=== PATIENT | male | born 1935 | race Two or more races ===

== ENCOUNTER 2016-11-11 22:13 | Inpatient (IN) | payer MEDICARE, OTHER ==
[~2016-11-11] VITALS: Ht 170.2 cm; Wt 77.1 kg
[~2016-11-11 22:13] MED LIST: ACET-868 PO; BISA-79 RC; BLOO-140 IN; FERR-58 PO; FLUT1DIS3 IH; FURO-145 PO; INSU100V3 SQ; INSU100V7 SQ; MAGN400O6 PO; METO25TA6 PO; MULT1TAB11 PO; NA P133E RC; PANT40TA2 PO; TAMS-12 PO; TIOT18CA3 INH
--- NOTE | 2016-11-11 22:15 | NUR ---
PT BIB [facility] AND SOB SINCE 11AM. PER RA " PT ON SCENE SATURATION WAS AT 80'S THEN PLACED ON NON REBREATHER, 02 SAT INCREASED TO 96%. PT AO TO NAME. PT NOTED WITH SOB. HX OF COPD. NO NVD AT THIS TIME. PT GOWNED AND PLACED ON MONITOR. DR. NETTLES AT BEDSIDE FOR EVAL. PER RA PLACED IV ON LEFT WRIST 18.
--- NOTE | 2016-11-11 22:28 | NUR ---
IV STARTED ON LEFT AC 18. BLOOD AND BLOOD CX DRAWN. SENT TO LAB
--- NOTE | 2016-11-11 22:29 | NUR ---
RT AT BEDSIDE FOR ABG DRAW.
[2016-11-11 22:38] LABS: BASOPHILS % (AUTO) 0.6 % (0.0-2.0); EOSINOPHILS # (AUTO) 0.3 /CMM (0.0-0.7); EOSINOPHILS % (AUTO) 4.5 % (0.0-6.0); HEMATOCRIT 39 % (39-51); HEMOGLOBIN 12.1 g/dL (13.5-17.5); LYMPHOCYTES # (AUTO) 1.3 /CMM (0.8-4.8); LYMPHOCYTES % (AUTO) 17.6 % (20.0-44.0); MEAN CORPUSCULAR HEMOGLOBIN 27 PG (26.0-33.0); MEAN CORPUSCULAR HGB CONC 31 g/dl (31.0-36.0); MEAN CORPUSCULAR VOLUME 84 fL (80-96); MONOCYTES # (AUTO) 0.5 /CMM (0.1-1.30); MONOCYTES % (AUTO) 6.5 % (2.0-12.0); NEUTROPHILS # (AUTO) 5.2 /CMM (1.8-8.9); NEUTROPHILS % (AUTO) 70.8 % (43.0-81.0); PLATELET COUNT (AUTO) 243 /CMM (150-450); RDW COEFFICIENT OF VARIATION 16.2 (11.5-15.0); RED BLOOD CELL COUNT(AUTO) 4.58 MIL/uL (4.5-6.0); WHITE BLOOD COUNT (AUTO) 7.4 K/uL (4.3-11.0)
--- NOTE | 2016-11-11 22:41 | NUR ---
XRAY AT BEDSIDE
[2016-11-11 22:46] LABS: ABG BASE EXCESS 8.6 mmol/L; ABG OXYGEN SATURATION 81.6 % (92.0-98.5); ABG PCO2 68.8 mmHg (35.0-45.0); ABG PH 7.344 (7.350-7.450); ABG PO2 50.5 mmHg (75.0-100.0); ABG TOTAL HEMOGLOBIN 12.3 G/dL (13.5-18.0); AaDO2 16.8 mmHg; MetHb 0.5 % (0.0-1.5); O2Hb 80.4 % (94.0-97.0); SITE, ABG Left Radial; VENT MODE, BG ROOM AIR
--- NOTE | 2016-11-11 22:46 | NUR ---
DR. DAVIS AT BEDSIDE FOR EVAL.
[2016-11-11 22:50] LABS: CALCIUM, SERUM 9.2 mg/dL (8.5-10.1); CREATININE 0.9 mg/dL (0.6-1.3)
[2016-11-11 22:53] LABS: LACTIC ACID 1.9 mmol/L (0.4-2.0)
[2016-11-11 22:55] LABS: TROPONIN I 0.074 ng/mL (0.00-0.056)
[2016-11-11 23:00] LABS: ALBUMIN 2.9 g/dL (3.4-5.0); BILIRUBIN,DIRECT 0.1 mg/dL (0.0-0.2); BILIRUBIN,TOTAL 0.3 mg/dL (0.2-1.0); TOTAL PROTEIN, SERUM 7.1 g/dL (6.4-8.2)
--- NOTE | 2016-11-11 23:22 | NUR ---
DR. GALVAN SPEAKING TO DR. DAVIS REGARDING ADMISSION.
[2016-11-11] MEDS ORDERED: LEVOFLOXACIN 750 MG /D5W 150ML 150 ML IV ONE (23:23)
[2016-11-11] MEDS ORDERED: IV NS 0.9% 1,000 ML ONE (23:24)
[2016-11-11] MEDS ORDERED: IV SET PRIMARY PUMP SET 1 EA INFUS.SET MC ONE (23:24)
--- NOTE | 2016-11-11 23:28 | NUR ---
PATIENT ASSIGNED TO 312-2
[2016-11-11] MEDS ORDERED: MAG HYDROX/AL HYDROX/SIMETH 30 ML UDC PO PRN (23:30)
[2016-11-11] MEDS ORDERED: NA PHOS,M-B/NA PHOS,DI-BA 1 EA ENEMA RC PRN (23:30)
[2016-11-11] MEDS ORDERED: LEVOFLOXACIN 750 MG /D5W 150ML PIGGYBACK IV ONE (23:30)
[2016-11-11] MEDS ORDERED: FUROSEMIDE 40 MG/4 ML VIAL IV ONE (23:30)
[2016-11-11] MEDS ORDERED: ONDANSETRON HCL/PF 4 MG/2 ML VIAL IVP PRN (23:30)
[2016-11-11] MEDS ORDERED: ZOLPIDEM TARTRATE 5 MG TABLET PO PRN (23:30)
[2016-11-11] MEDS: LEVOFLOXACIN 750 MG /D5W 150ML 750 MG in PREMIX 1 EA IV SCH (23:30)
[2016-11-11] MEDS ORDERED: ACETAMINOPHEN 325 MG TABLET PO PRN ×2 (23:30)
[2016-11-11] MEDS ORDERED: IV NS 0.9% 1,000 ML BAG IV ONE (23:30)
[2016-11-11] MEDS ORDERED: Z GUARD REMEDY 2 OZ OINT TP PRN (23:30)
[2016-11-11] MEDS ORDERED: IPRATROPIUM NEB FS 0.5 MG/2.5 ML AMPUL.NEB NEB PRN (23:30)
[2016-11-11] MEDS ORDERED: ENOXAPARIN SODIUM 40 MG/0.4 ML DISP.SYRIN SQ SCH (23:30)
[2016-11-11] MEDS ORDERED: BISACODYL (5 MG) 5 MG TABLET.DR PO PRN (23:30)
[2016-11-11] MEDS ORDERED: MAGNESIUM HYDROXIDE 30 ML UDC PO PRN (23:30)
[2016-11-11] MEDS ORDERED: HYDROCODONE/APAP 5/325MG 1 EACH TABLET PO PRN (23:30)
[2016-11-11] MEDS ORDERED: ALBUTEROL FS 2.5 MG/0.5 ML VIAL.NEB NEB PRN (23:30)
[2016-11-11] MEDS ORDERED: ASPIRIN 81 MG TAB.CHEW PO ONE (23:30)
[2016-11-11] MEDS ORDERED: ASPIRIN 81 MG TAB.CHEW ONE (23:34)
--- NOTE | 2016-11-11 23:46 | NUR ---
REPORT GIVEN TO MARCOS TURK FOR CONTINUE OF CARE.
--- NOTE | 2016-11-11 23:47 | NUR ---
PT ASSIGNED TO TELE 312-2 PER BURKE
[2016-11-12] VITALS (32 sets, daily range): BP systolic 103–149; BP diastolic 54–96
--- NOTE | 2016-11-12 | NUR ---
yung alex notes: checked blood sugar and reveal 124, no insulin given pt on cardiac diet, tolerating po intake Addendum: 11/12/16 at 0144 by NANCY YOST RN wrong time: 0100
--- NOTE | 2016-11-12 00:02 | NUR ---
PT TRANSFERED PER ACLS PROTOCOL.
--- NOTE | 2016-11-12 00:05 | NUR ---
ADMISSION NOTES: RECEIVED REPORT FROM CARMEN RODRÍGUEZ. [facility], BROUGHT TO THE UNIT VIA GURNEY, PT IS A/O X1 TO SELF ONLY, [place] SPEAKING, ON 3L VIA NC, RESPIRATION EVEN AND UNLABORED, NO FACIAL GRIMACE NOTED, APPEARS CALM AND COMFORTABLE, PT HAS LEFT HAND G 18 AND LEFT AC G 18 BOTH PATENT AND FLUSHING WELL, RECEIVED PT WITH ONGOING IV NS 1L BOLUS AND LEVOFLOXACIN RUNNING AT 100ML/HR. ORIENTED PT TO UNIT POLICY AND HOURLY ROUNDING, TELEMONITOR IN PLACED, ON SINUS RHYTHM TO SINUS TACH WITH PAC HR 95, HIGHEST 120, VS TAKEN AND RECORDED. INVENTORY OF BELONGING COMPLETED BY NIKOLAS LIM. SAFETY PRECAUTIONS FOR FALL INITIATED CALL LIGHT IN REACH, WILL CONTINUE TO MONITOR
[2016-11-12] MEDS ORDERED: ENOXAPARIN SODIUM 40 MG/0.4 ML DISP.SYRIN SQ ONE (00:07)
[2016-11-12] MEDS ORDERED: FUROSEMIDE 40 MG/4 ML VIAL ONE (00:07)
--- NOTE | 2016-11-12 00:20 | NUR ---
SILK SCREEN PRINTER HELPER NOTES: SKIN ASSESSMENT PERFORMED, TAKEN PICTURES PRINTED AND ATTACHED TO CHART PLEASE SEE SKIN ASSESSMENT FOR DETAILS. WOUND CARE PROVIDED, BLE KEPT OFFLOADED. BED BATH PROVIDED TO THE PT AT THIS TIME. CONNECTED TO [employer] PULSE OX WITH READING OF 92-98% LOWEST 86% WHEN SLEEPING, ON 3L VIA NC, CRACKLES HEARD UPON AUSCULTATION.
--- NOTE | 2016-11-12 00:30 | NUR ---
television presenter notes: stop above pt's iv bolus, possible congestion pt has copd, will recheck vital sign again,
--- NOTE | 2016-11-12 00:39 | NUR ---
supervisor telephone answering service notes: iv levaquin not administered at this time, dose of levaquin given in er,
[2016-11-12] MEDS ORDERED: methylPREDNISolone SOD SUCC 40 MG/ML VIAL ONE ×2 (00:41→06:09)
--- NOTE | 2016-11-12 00:45 | NUR ---
ANIMAL RESEARCHER NOTES: CHECKED PT'S MEDICAL RECORD FROM FACILITY, ITS INDICATED THERE PT'S VACCINATION STATUS, PT RECEIVED FLU AND PNEUMOCOCCAL VACCINE HOWEVER IT'S NOT INDICATED THE SPECIFIC DATE PT RECEIVED THE VACCINE.
[2016-11-12] MEDS: methylPREDNISolone SOD SUCC 125 MG/2ML VIAL IV SCH ×5 (00:47→17:36)
--- NOTE | 2016-11-12 01:38 | NUR ---
telecom coordinator notes: recheck pt's vital signs and reval, 116/79 hr 98 rr 21 spo2 95% on 2l via nc, 98.0
[2016-11-12] MEDS ORDERED: ASPI81TA2 PO (02:18)
[2016-11-12] MEDS ORDERED: METF10002 PO (02:18)
--- NOTE | 2016-11-12 06:16 | NUR ---
television writer notes: checked pt's blood sugar and reveal 182, no insulin given, per md no accucheck no coverage for now, relay to external grinder tender meg, will endorse to day md to get coverage for insulin and accucheck order
--- NOTE | 2016-11-12 06:36 | NUR ---
telecasting technician closing notes: pt in bed, awake, remains a/o x1, confused, on 3l via nc, currently on continuous pulse ox sating 96%, no sob noted, not in apparent distress, no facial grimace noted, appears comfortable. remains sinus rhythm 99 also goes to tachy 110. iv access remains patent and flushing well, on hl. no s/s of infiltration or redness noted. vs remains stable, needs attended. ble kept offloaded. for wound care, pulmo, case mngt and csc consult today. will endorse to day rn for rupal.
[2016-11-12 06:58] LABS: BASOPHILS % (AUTO) 0.1 % (0.0-2.0); EOSINOPHILS % (AUTO) 0.5 % (0.0-6.0); HEMATOCRIT 41 % (39-51); HEMOGLOBIN 12.7 g/dL (13.5-17.5); LYMPHOCYTES # (AUTO) 0.4 /CMM (0.8-4.8); LYMPHOCYTES % (AUTO) 6.4 % (20.0-44.0); MEAN CORPUSCULAR HEMOGLOBIN 27 PG (26.0-33.0); MEAN CORPUSCULAR HGB CONC 31 g/dl (31.0-36.0); MEAN CORPUSCULAR VOLUME 85 fL (80-96); MONOCYTES % (AUTO) 0.7 % (2.0-12.0); NEUTROPHILS # (AUTO) 5.4 /CMM (1.8-8.9); NEUTROPHILS % (AUTO) 92.3 % (43.0-81.0); PLATELET COUNT (AUTO) 193 /CMM (150-450); RDW COEFFICIENT OF VARIATION 16.1 (11.5-15.0); RED BLOOD CELL COUNT(AUTO) 4.78 MIL/uL (4.5-6.0); WHITE BLOOD COUNT (AUTO) 5.9 K/uL (4.3-11.0)
[2016-11-12 07:29] LABS: CREATININE 0.8 mg/dL (0.6-1.3); MAGNESIUM 1.4 mg/dL (1.8-2.4); POTASSIUM 4.4 mmol/L (3.5-5.1)
[2016-11-12] MEDS: PANTOPRAZOLE 40 MG TABLET.DR PO SCH (07:30)
[2016-11-12] MEDS ORDERED: PANTOPRAZOLE 40 MG TABLET.DR PO SCH (07:30)
--- NOTE | 2016-11-12 07:30 | NUR ---
DELIVERY TABLE OPERATOR OPENING RECEIVED PATIENT A/OX1 VERBALIZES NAME ONLY. PATIENT DOES NOT EXPRESS S/S PAIN, SOB, DIFFICULTY BREATHING. PULSE OX IS ON; PATIENT CURRENTLY IS ON 3LPM AND VARIES O2 SAT FROM 92-95%. PATIENT APPEARS COMFORTABLE AND PILLOWS MOVED TO ASSIST WITH INCREASED COMFORT. WILL ORDER CONTINUOUS PULSE OX FOR PATIENT. CALL LIGHT IN REACH, BED LOWERED AND LOCKED, RAILS UPX3 FOR SAFETY AND WILL ROUND Q2H OR LESS PER NEEDS.
--- NOTE | 2016-11-12 07:30 | NUR ---
SUPERVISOR PILE DRIVING NOTES PATIENT CURRENTLY NSR HIGH 90'S
--- NOTE | 2016-11-12 07:40 | NUR ---
SPRAY PILOT NOTES NOTIFIED DR TURNER OF CONSULT.
[2016-11-12 07:44] LABS: THYROID STIMULATING HORMONE 1.16 uIU/mL (0.358-3.74)
--- NOTE | 2016-11-12 08:15 | NUR ---
TOOL CLERK NOTES PATIENT IS VERY LETHARGIC; BLOOD SUGAR WAS JUST CHECKED BY NIGHT RN AND NOT LOW. PATIENT OPENS EYES WHEN ASKED BUT NOT VERY RESPONSIVE. HAS MORE SHALLOW BREATHING AT THIS TIME RT WILL DO ABG.
--- NOTE | 2016-11-12 08:30 | NUR ---
BOTTOM SCRUBBER NOTES DR TURNER AT BEDSIDE
--- NOTE | 2016-11-12 08:34 | NUR ---
CLASSROOM AIDE NOTES CALLED RT TO HAVE ABG DRAWN AND TO BRING UP CONTINUOUS PULSE OX
[2016-11-12] MEDS: TAMSULOSIN 0.4 MG CAP.SR.24H PO SCH ×2 (09:00→17:36)
[2016-11-12] MEDS: GUAIFENESIN LA 600 MG TABLET.SA PO SCH ×3 (09:00→21:00)
[2016-11-12 09:11] LABS: ABG OXYGEN SATURATION 94.1 % (92.0-98.5); ABG PCO2 119.4 mmHg (35.0-45.0); ABG PH 7.184 (7.350-7.450); ABG PO2 86.1 mmHg (75.0-100.0); ABG TOTAL HEMOGLOBIN 13.1 G/dL (13.5-18.0); AaDO2 2.4 mmHg; COHb 1.2 % (0.5-1.5); MetHb 0.4 % (0.0-1.5); O2Hb 92.6 % (94.0-97.0); SITE, ABG Right Radial; VENT MODE, BG NASAL CANNULA
--- NOTE | 2016-11-12 09:20 | NUR ---
POLICEMAN NOTES SPOKE WITH DR HALIE AVILES TO GIVE SOLUMEDROL AT NEXT DOSE 1300
--- NOTE | 2016-11-12 09:30 | NUR ---
PRINCIPAL ACCOUNT CLERKSTAMPING DIE MAKER TRANSFERRING PATIENT TO ICU PER MD ORDER. DR AMBROSE AT BEDSIDE FOR TRANSPORT. PATIENT PLACED ON LEADS, AND O2 2LPM. RT AT BEDSIDE. REPORT GIVEN TO DANUTA RODRÍGUEZ FOR ROSA. SPOKE WITH TASIA VINSON AND UPDATED ON PATIENT CONDITION.
--- NOTE | 2016-11-12 09:30 | NUR ---
SEQUENCING MACHINE OPERATOR RECEIVED PT BY BED FROM [facility] FOR ABNORMAL ABG. PT LETHARGIC. PLACED ON BIPAP.
--- NOTE | 2016-11-12 10:00 | NUR ---
PT PLACED ON BIPAP SETTINGS 20/5 BACKUP RATE OF 20, FIO2 25%. PT TOLERATING WELL. STILL LETHARGIC BUT AROUSABLE. FOLLOW UP ABG'S ORDERED.
[2016-11-12 10:46] LABS: ABG BASE EXCESS 9.9 mmol/L; ABG OXYGEN SATURATION 90.5 % (92.0-98.5); ABG PH 7.288 (7.350-7.450); ABG PO2 65.3 mmHg (75.0-100.0); ABG TOTAL HEMOGLOBIN 12.7 G/dL (13.5-18.0); COHb 1.4 % (0.5-1.5); MetHb 0.6 % (0.0-1.5); O2Hb 88.7 % (94.0-97.0); PEEP,BG 5 cm H2O; SITE, ABG Right Radial; VENT MODE, BG BIPAP 20/5
[2016-11-12] MEDS ORDERED: IV SET PRIMARY PUMP SET 1 EA INFUS.SET MC ONE (11:59)
[2016-11-12] MEDS ORDERED: IV NS 0.9% 250 ML IV ONE (11:59)
[2016-11-12] MEDS ORDERED: SECONDARY IV SET 1 EA INFUS.SET MC ONE (11:59)
[2016-11-12] MEDS: Magnesium 1GM/D5W 100ML PREMIX 100 ML IV SCH ×4 (12:05→16:51)
--- NOTE | 2016-11-12 12:30 | NUR ---
PT WOKE UP AGITATED REMOVED BIPAP AND SITTING UP IN BED. TRIED PLACING HIM ON NC 2 LITERS, HIS SATURATION IS AT 88-95% BUT HIS MENTAL STATUS WENT FROM AWAKE AND AGITATED TO DROWSY AND LETHARGIC PLACED HIM BACK ON THE BIPAP, FOLLOW UP ABG'S ORDERED, LAST CO2 IS 85%
[2016-11-12] MEDS: ALBUTEROL FS 2.5 MG/0.5 ML VIAL.NEB NEB SCH ×2 (13:07→20:07)
[2016-11-12] MEDS: IPRATROPIUM NEB FS 0.5 MG/2.5 ML AMPUL.NEB NEB SCH ×2 (13:07→20:07)
--- NOTE | 2016-11-12 18:32 | NUR ---
PT AWAKE OFF BIPAP AND SATURATING AT 93% ON 2L NC. HE IS SOMEWHAT AGITATED AND HUNGRY. ABLE TO TOLERATE EATING INDEPENDENTLY WITHOUT DESATURATING. DR. AWAD AWARE ORDERS KEEP HIM ON NC FOR NOW AND BIPAP OVERNIGHT WITH ABG ORDER IN THE MORNING.
--- NOTE | 2016-11-12 20:00 | NUR ---
LANG PATH THERAPIST - NOTES - RECEIVED PATIENT A/OX1-2, PATIENT DENIES PAIN, SOB. PATIENT CURRENTLY IS ON 4 LPM VIA NC. PATIENT APPEARS COMFORTABLE AND PILLOWS MOVED TO ASSIST WITH INCREASED COMFORT. CALL LIGHT IN REACH, BED LOWERED AND LOCKED, RAILS UPX3 FOR SAFETY AND WILL ROUND Q1H OR LESS PER NEEDS.
[2016-11-12] MEDS: ENOXAPARIN SODIUM 40 MG/0.4 ML DISP.SYRIN SQ SCH (20:39)
[2016-11-12] MEDS: INSULIN DETEMIR 100 UNIT/ML CARTRIDGE SQ SCH (22:01)
--- NOTE | 2016-11-12 22:30 | NUR ---
PT SON AT BEDSIDE, SON SAYS THE PT IS CONFUSED AND IS SAYING THINGS THAT DONT MAKE SENSE LIKE I HAVE TO GO THROUGH IMMIGRATION BACK TO [place]. WILL PLACE PT ON BIPAP OVERNIGHT
--- NOTE | 2016-11-12 23:54 | NUR ---
PT PLACED ON BIPAP
[2016-11-12] MEDS: LEVOFLOXACIN 750 MG /D5W 150ML 750 MG in PREMIX 1 EA IV SCH (23:59)
[2016-11-13] VITALS (25 sets, daily range): BP systolic 106–159; BP diastolic 64–94
[2016-11-13] MEDS: IPRATROPIUM NEB FS 0.5 MG/2.5 ML AMPUL.NEB NEB SCH ×4 (02:03→19:30)
[2016-11-13] MEDS: ALBUTEROL FS 2.5 MG/0.5 ML VIAL.NEB NEB SCH ×4 (02:03→19:30)
[2016-11-13 04:46] LABS: BASOPHILS % (AUTO) 0.4 % (0.0-2.0); EOSINOPHILS % (AUTO) 0.1 % (0.0-6.0); HEMATOCRIT 40 % (39-51); HEMOGLOBIN 12.3 g/dL (13.5-17.5); LYMPHOCYTES # (AUTO) 0.5 /CMM (0.8-4.8); LYMPHOCYTES % (AUTO) 11.7 % (20.0-44.0); MEAN CORPUSCULAR HEMOGLOBIN 27 PG (26.0-33.0); MEAN CORPUSCULAR HGB CONC 31 g/dl (31.0-36.0); MEAN CORPUSCULAR VOLUME 85 fL (80-96); MONOCYTES # (AUTO) 0.5 /CMM (0.1-1.30); MONOCYTES % (AUTO) 10.8 % (2.0-12.0); NEUTROPHILS # (AUTO) 3.4 /CMM (1.8-8.9); PLATELET COUNT (AUTO) 190 /CMM (150-450); RDW COEFFICIENT OF VARIATION 15.6 (11.5-15.0); RED BLOOD CELL COUNT(AUTO) 4.66 MIL/uL (4.5-6.0); WHITE BLOOD COUNT (AUTO) 4.4 K/uL (4.3-11.0)
[2016-11-13 04:58] LABS: CALCIUM, SERUM 8.9 mg/dL (8.5-10.1); CREATININE 0.9 mg/dL (0.6-1.3); MAGNESIUM 2.4 mg/dL (1.8-2.4); POTASSIUM 4.9 mmol/L (3.5-5.1)
--- NOTE | 2016-11-13 07:05 | NUR ---
RN INITIAL NOTES RECEIVED PT AWAKE, A/OX1-2 WITH PERIODS OF CONFUSION. ON BIPAP. NO SOB NOTED. NO RESPIRATORY DISTRESS NOTED. NO SIGNS OF PAIN NOTED. HOB ELEVATED. IV LINES IN PLACE. BLE ELEVATED. PT COMFORTABLE. CALL LIGHT WITHIN REACH. WILL MONITOR.
--- NOTE | 2016-11-13 07:27 | NUR ---
RT PATIENT REMOVED FROM BIPAP AND PLACED ON 2L N/C. PATIENT RESPONDS TO VERBAL COMMANDS AND HAS NO COMPLAINTS OF SOB. WILL CONT TO MONITOR CLOSELY. RN AWARE
[2016-11-13] MEDS: methylPREDNISolone SOD SUCC 125 MG/2ML VIAL IV SCH ×3 (08:00→16:37)
[2016-11-13] MEDS: GUAIFENESIN LA 600 MG TABLET.SA PO SCH ×2 (08:00→21:33)
[2016-11-13] MEDS: TAMSULOSIN 0.4 MG CAP.SR.24H PO SCH ×2 (08:00→16:37)
[2016-11-13] MEDS: PANTOPRAZOLE 40 MG TABLET.DR PO SCH (08:00)
--- NOTE | 2016-11-13 08:28 | NUR ---
RT PATIENT AWAKE AND ALERT WAS ASKED MULTIPLE TIMES IF HE WOULD ALLOW ME TO DRAW AN ABG. PROCEDURE AND PURPOSE WAS EXPLAINED. PATIENT REFUSED EVERY TIME AND SAID IF YOU WANT TO BE HIT COME CLOSE TO ME WITH THAT NEEDLE. RN AWARE AND NOTIFIED
[2016-11-13] MEDS ORDERED: DEXTROSE 50%-WATER 50 ML DISP.SYRIN IV PRN (09:00)
--- NOTE | 2016-11-13 09:00 | NUR ---
RN NOTES SEEN AND EXAMINED BY DR. GARCES. PT OFF BIPAP, ON 02 AT 2LPM VIA NC. NO RESPIRATORY DISTRESS NOTED. NO SOB NOTED. HOB ELEVATED. NO SIGNS OF PAIN NOTED. MD AWARE OF CURRENT LAB VALUES AND CXR RESULT. NOTIFIED THAT PT REFUSED ABG DRAW EVEN AFTER EXPLANATION OF IMPORTANCE. NO ORDER MADE AT THIS TIME.
[2016-11-13] MEDS: INSULIN REGULAR, HUMAN 100 UNIT/ML 3 ML VIAL SQ PRN ×2 (12:08→16:48)
[2016-11-13] MEDS: BLOOD SUGAR DIAGNOSTIC 1 EACH STRIP IN SCH ×3 (12:08→21:33)
--- NOTE | 2016-11-13 13:51 | NUR ---
WOUND CARE CONSULT: VERY LIMITED ASSESSMENT DUE TO PATIENT AGITATED AND REFUSING SKIN ASSESSMENT AT THIS TIME. PT NOTED TO HAVE OPEN WOUND TO RT LOWER LEG. LOWER LEGS HAVE REDDISH/PURPLE COLOR. RECOMMENDATIONS MADE FOR WOUND CARE. DISCUSSED WITH NURSING STAFF. RECOMMEND SURGICAL CONSULT. PT SITTING UP IN BED AT THIS TIME WITH RN AT BEDSIDE. PT INCONTINENT. WILL SEE PT PT CONDITION PERMITS. MD IN AGREEMENT WITH PLAN OF CARE.
--- NOTE | 2016-11-13 13:55 | NUR ---
RN NOTES SEEN AND EXAMINED BY NIEVES (WOUND NURSE). PT AGITATED. REFUSED TO DO FULL BODY ASSESSMENT. NOTED WOUND ON RIGHT LOWER LEG. TX ORDERED. WILL KEEP CLEAN AND DRY. WILL MONITOR FOR CHANGES
[2016-11-13] MEDS ORDERED: HYDROGEL DRESSING 90 GM TUBE TP PRN (14:00)
--- NOTE | 2016-11-13 14:55 | NUR ---
RN NOTES IV LINE ON LAC PULLED OUT. COVERED WITH GAUZE. PT REFUSED IV INSERTION. PT AGITATED, YELLING. EXPLAINED IMPORTANCE WITH ACUTE CARE OCCUPATIONAL THERAPIST, STILL REFUSED. RESPECTED PT'S RIGHTS.
[2016-11-13] MEDS: HYDROGEL DRESSING 90 GM TUBE TP SCH (15:16)
--- NOTE | 2016-11-13 18:55 | NUR ---
RN NOTES PT TRANSFERRED TO ROOM 106. PT A/OX1-2 WITH PERIODS OF CONFUSION. ON 02 VIA NC. NO SOB NOTED. NO SIGNS OF PAIN NOTED. IN STABLE CONDITION. REPORT GIVEN TO CRISTOPHER RODRÍGUEZ. TOOK OVER PT'S CARE.
--- NOTE | 2016-11-13 19:30 | NUR ---
MAUREEN RN INITIAL NOTES RECEIVED REPORT FROM NURSE NICHOLAS. PATIENT IN BED, AWAKE, ALERT AND ORIENTED X1-2, MACEDONIAN SPEAKING, WITH PERIODS OF CONFUSION, OCCASIONAL PERIODS OF AGITATION/REFUSAL OF CARE. LEFT HAND IV SITE PATENT AND INTACT, FLUSHED WITH NS, FREE FROM ANY S/S OF INFILTRATION OR PHLEBITIS. ON O2 VIA NC @ 2LPM, TOLERATING WELL, FREE FROM ANY S/S OF RESPIRATORY DISTRESS. RT AT BEDSIDE, PATIENT REFUSING BREATHING TREATMENT. EXPLAINED RISKS AND CONSEQUENCES OF REFUSING PRESCRIBED MEDICATION. PATIENT VERBLIZES UNDERSTANDING BUT STILL STRONGLY REFUSES. BED IN LOWEST AND LOCKED POSITION, WITH CALL LIGHT WITHIN EASY REACH. WILL CONTINUE TO CLOSELY MONITOR
[2016-11-13] MEDS: *INSULIN REGULAR(HUMULIN R)HUM 100 UNIT/ML VIAL SQ PRN (21:36)
[2016-11-13] MEDS: INSULIN DETEMIR 100 UNIT/ML CARTRIDGE SQ SCH (21:39)
[2016-11-13] MEDS: ENOXAPARIN SODIUM 40 MG/0.4 ML DISP.SYRIN SQ SCH (21:39)
[2016-11-13] MEDS ORDERED: IV SET PRIMARY PUMP SET 1 EA INFUS.SET MC ONE (23:11)
[2016-11-13] MEDS: LEVOFLOXACIN 750 MG /D5W 150ML 750 MG in PREMIX 1 EA IV SCH (23:44)
[2016-11-14] VITALS: BP 124/80
[2016-11-14] MEDS: IPRATROPIUM NEB FS 0.5 MG/2.5 ML AMPUL.NEB NEB SCH ×4 (01:00→19:28)
[2016-11-14] MEDS: ALBUTEROL FS 2.5 MG/0.5 ML VIAL.NEB NEB SCH ×4 (01:00→19:28)
[2016-11-14 04:00] VITALS: BP 137/83
--- NOTE | 2016-11-14 06:07 | NUR ---
RN CLOSING NOTES PATIENT REFUSED LABS TO BE DRAWN THIS MORNING, STATING "TAKING MY BLOOD AFFECTS MY HEART." EXPLAINED TO THE PATIENT THE RISKS AND CONSEQUENCES OF REFUSING LABS. PATIENT VERBALIZES UNDERSTANDING, BUT STILL STRONGLY REFUSING, BECOMING AGITATED. PATIENT'S WISHES OBSERVED. WILL ENDORSE THE PATIENT TO THE AM SHIFT NURSE FOR ROSA
[2016-11-14 08:00] VITALS: BP 135/81
[2016-11-14] MEDS: GUAIFENESIN LA 600 MG TABLET.SA PO SCH ×2 (09:38→21:27)
[2016-11-14] MEDS: TAMSULOSIN 0.4 MG CAP.SR.24H PO SCH ×2 (09:38→16:51)
[2016-11-14] MEDS: PANTOPRAZOLE 40 MG TABLET.DR PO SCH (09:38)
[2016-11-14] MEDS: methylPREDNISolone SOD SUCC 125 MG/2ML VIAL IV SCH (09:39)
[2016-11-14] MEDS: HYDROGEL DRESSING 90 GM TUBE TP SCH (09:39)
[2016-11-14] MEDS: BLOOD SUGAR DIAGNOSTIC 1 EACH STRIP IN SCH ×4 (09:40→21:24)
[2016-11-14 09:41] LABS: ABG BASE EXCESS 11.7 mmol/L; ABG OXYGEN SATURATION 95.1 % (92.0-98.5); ABG PCO2 66.6 mmHg (35.0-45.0); ABG PH 7.389 (7.350-7.450); ABG PO2 83.8 mmHg (75.0-100.0); ABG TOTAL HEMOGLOBIN 12.7 G/dL (13.5-18.0); AaDO2 66.4 mmHg; COHb 0.9 % (0.5-1.5); MetHb 0.8 % (0.0-1.5); O2Hb 93.5 % (94.0-97.0); SITE, ABG Right Radial; VENT MODE, BG NASAL CANNULA
[2016-11-14] MEDS: INSULIN REGULAR, HUMAN 100 UNIT/ML 3 ML VIAL SQ PRN ×3 (09:48→17:46)
--- NOTE | 2016-11-14 10:04 | NUR ---
WOUND CARE CONSULT: PT BECOMES AGITATED AT TIMES. RT LOWER LEG AND RT ANTERIOR ANKLE ULCERS NOTED TO BE PRESENT ON ADMISSION. RESOLVING EDEMA WITH PURPLISH DISCOLORATION NOTED TO LOWER LEGS. RECOMMEND DPM CONSULT. RECOMMENDATIONS MADE FOR WOUND CARE AND DISCUSSED WITH NURSING STAFF. PT ON ISOFLEX LOW AIRLOSS BED. ALL SKIN PROTECTION MEASURES IN PLACE. MD IN AGREEMENT WITH PLAN OF CARE. Addendum: 11/14/16 at 1009 by NIEVES CARTAGENA WNDNU Amended: Links added.
[2016-11-14 10:47] LABS: CALCIUM, SERUM 8.8 mg/dL (8.5-10.1); CREATININE 0.9 mg/dL (0.6-1.3); POTASSIUM 4.7 mmol/L (3.5-5.1)
[2016-11-14 12:00] VITALS: BP 128/77
--- NOTE | 2016-11-14 13:37 | NUR ---
RN NOTES SPOKE WITH DR GOLDSTEIN, PER MD AVILES FOR PODIATRY CONSULT.
[2016-11-14] MEDS: predniSONE 20 MG TABLET PO SCH (14:39)
[2016-11-14 16:00] VITALS: BP 130/74
--- NOTE | 2016-11-14 18:23 | NUR ---
RN CLOSING NOTES PATIENT COOPERATIVE THROUGHOUT THE DAY. UNABLE TO OBTAIN IV ACCESS AFTER MULTIPLE ATTEMPTS Md notified and authorize that is is ok for no iv access at this time. PATIENT VERBALIZES UNDERSTANDING. pt WITH OUT ISSUE , NURSING STAFF WILL CONTINUE TO FOLLOW . WILL ENDORSE THE PATIENT TO THE pM SHIFT NURSE FOR ROSA
[2016-11-14 20:00] VITALS: BP 124/73
[2016-11-14] MEDS ORDERED: LEVOFLOXACIN (750 MG) 750 MG TABLET PO SCH (21:00)
[2016-11-14] MEDS: ENOXAPARIN SODIUM 40 MG/0.4 ML DISP.SYRIN SQ SCH (21:26)
[2016-11-14] MEDS: *INSULIN REGULAR(HUMULIN R)HUM 100 UNIT/ML VIAL SQ PRN (21:26)
[2016-11-14] MEDS: INSULIN DETEMIR 100 UNIT/ML CARTRIDGE SQ SCH (21:31)
--- NOTE | 2016-11-14 21:31 | NUR ---
MED NOTE: 2200 LEVEMIR HELD PT BLOOD SUGARS TRENDING DOWN. PT IS OFF IV STEROIDS WILL CONTINUE TO MONITOR.
--- NOTE | 2016-11-14 21:32 | NUR ---
MS-1/CHOCOLATE FINISHER CA KAREL DOZIER [phone] AT BEDSIDE. UPDATE GIVEN ON PT STATUS. PT DEBORA WOULD LIKE TO SPEAK WITH PRIMARY MD IN AM. WILL ENDORSE TO AM SHIFT.
[2016-11-15] MEDS: IPRATROPIUM NEB FS 0.5 MG/2.5 ML AMPUL.NEB NEB SCH ×3 (01:51→13:14)
[2016-11-15] MEDS: ALBUTEROL FS 2.5 MG/0.5 ML VIAL.NEB NEB SCH ×3 (01:51→13:15)
[2016-11-15 04:00] VITALS: BP 131/82
--- NOTE | 2016-11-15 06:09 | NUR ---
MS-1/GUN CLUB MANAGER PT REQUESTING PRN BREATHING TREATMENT. PT WHEEZING AND TRIPODING ON BEDSIDE TABLE. SPOKE WITH DR. ELLIS NEW ORDERS RECEIVED AND CARRIED OUT.
[2016-11-15] MEDS ORDERED: IPRATROPIUM NEB FS 0.5 MG/2.5 ML AMPUL.NEB NEB PRN (06:30)
[2016-11-15] MEDS ORDERED: ALBUTEROL FS 2.5 MG/0.5 ML VIAL.NEB NEB PRN (06:30)
[2016-11-15] MEDS: BLOOD SUGAR DIAGNOSTIC 1 EACH STRIP IN SCH ×2 (06:44→12:09)
[2016-11-15] MEDS: INSULIN REGULAR, HUMAN 100 UNIT/ML 3 ML VIAL SQ PRN ×2 (06:46→12:13)
--- NOTE | 2016-11-15 07:18 | NUR ---
RN INITIAL NOTES: Rec'd bed on bed on sitting position, A/O x 2, not in any distress. Pt on O2 at 2lpm/NC, saturating at 96%. No IV line noted. Provided comfort & safety measures. Call light placed w/in reach. Bed kept low & in locked position. Instructed pt to call RN or CLINICAL ACCOUNT LIAISON if needs assistance, verbalized understanding. Will continue to monitor.
[2016-11-15 08:00] VITALS: BP 128/70
[2016-11-15] MEDS: PANTOPRAZOLE 40 MG TABLET.DR PO SCH (08:22)
[2016-11-15] MEDS: predniSONE 20 MG TABLET PO SCH (08:22)
[2016-11-15] MEDS: TAMSULOSIN 0.4 MG CAP.SR.24H PO SCH (08:22)
[2016-11-15] MEDS: GUAIFENESIN LA 600 MG TABLET.SA PO SCH (08:22)
[2016-11-15] MEDS: HYDROGEL DRESSING 90 GM TUBE TP SCH (08:23)
[2016-11-15] MEDS ORDERED: LEVO750T21 PO (14:45)
[2016-11-15] MEDS ORDERED: PRED20TA PO (14:45)
--- NOTE | 2016-11-15 15:00 | NUR ---
RN NOTES: Pt seen & examined by Dr. Lucas w/ DC orders. spoke w/ pt's son Ramiro regarding DC.
[2016-11-15 16:00] VITALS: BP 114/75
--- NOTE | 2016-11-15 17:00 | NUR ---
RN NOTES: Gave telephone report to MARCOS Chery at [facility]. Pt's son Ramiro made aware of the picket labor union time by ambulance.
--- NOTE | 2016-11-15 17:30 | NUR ---
VALIDATION INTERN NOTES: [facility]. DC instructions & documents given to [facility] EMT c/o CN. Pt left the facility in stable condition via gurney, on cont O2 at 2lpm/NC, saturating at 95%.
[2016-11-16] MEDS ORDERED: predniSONE 20 MG TABLET PO SCH (09:00)
== END 2016-11-15 17:45 | DRG 189 ==
LOC: ER 22:14 → TELE 23:32 → ICU 11-12 09:15 → TELE-TD 11-13 18:44 → TELE1 11-14 09:43 → MEDSG1 11-14 13:55
PROC: 5A09357 Assistance with Respiratory Ventilation, Less than 24 Consecutive Hours, Continuous Positive Airway Pressure (ICD-10-PCS; principal; 2016-11-12)
DX: J96.01 Acute respiratory failure with hypoxia (principal); I21.4 Non-ST elevation (NSTEMI) myocardial infarction; G93.41 Metabolic encephalopathy; J44.1 Chronic obstructive pulmonary disease with (acute) exacerbation; J44.0 Chronic obstructive pulmonary disease with (acute) lower respiratory infection; E87.4 Mixed disorder of acid-base balance; I50.30 Unspecified diastolic (congestive) heart failure; J96.02 Acute respiratory failure with hypercapnia; K21.9 Gastro-esophageal reflux disease without esophagitis; N40.0 Benign prostatic hyperplasia without lower urinary tract symptoms; I11.0 Hypertensive heart disease with heart failure; I25.2 Old myocardial infarction; E11.65 Type 2 diabetes mellitus with hyperglycemia; R13.10 Dysphagia, unspecified; Z79.84 Long term (current) use of oral hypoglycemic drugs
CPT/HCPCS: 36415; 36600; 71010-TC; 80048-TC; 80061-TC; 80076-TC; 82803-TC; 82962-TC; 83605-TC; 83735-TC; 83880; 84100-TC; 84443-TC; 84484-TC; 85025-TC; 87040-TC; 87081-TC; 94799-TC; 97001-TC; 97116-TC; 97530-TC; A4216; A4606; A6248; J1650; J1815; J1940; J1956; J2920; J2930; J3475; J7030; J7050; Z7610

== ENCOUNTER 2017-02-06 21:09 | Inpatient (IN) | payer MEDICARE, OTHER ==
[~2017-02-06] VITALS: Ht 170.2 cm; Wt 86.0 kg
[~2017-02-06 21:09] MED LIST changes: +ASPI81TA2 PO; +LEVO750T21 PO; +METF10002 PO; +PRED20TA PO
[2017-02-06 21:15] VITALS: BP 147/92
[2017-02-06] MEDS ORDERED: methylPREDNISolone SOD SUCC 125 MG/2ML VIAL ONE (21:15)
--- NOTE | 2017-02-06 21:20 | NUR ---
MEDICATED PT ORDERED
--- NOTE | 2017-02-06 21:20 | NUR ---
PT DELLA FROM [facility], PT PER EMS WAS HAVING SOB X 20 MINUTES PRIOR TO ARRIVAL, PT IS NON VERBAL AT THIS TIME, IV PLACED PRIOR TO ARRIVAL BY EMS, RT AT [facility], SECOND IV PLACED UPON ARRIVAL AND LABS DRAWN AND SENT TO LAB, DWYER PLACED PER MD ORDER AND URINE SENT TO LAB, PT ON MONITOR, ON BIPAP, MD MADE AWARE WILL CONTINUE TO MONITOR.
[2017-02-06] MEDS ORDERED: IPRATROPIUM NEB FS 0.5 MG/2.5 ML AMPUL.NEB ONE ×2 (21:25→22:55)
[2017-02-06] MEDS ORDERED: ALBUTEROL FS 2.5 MG/0.5 ML VIAL.NEB ONE (21:25)
--- NOTE | 2017-02-06 21:26 | NUR ---
DWYER CATH PLACED ORDERED; URINE OUPTPUT 80 ML
[2017-02-06] MEDS ORDERED: methylPREDNISolone SOD SUCC 125 MG/2ML VIAL IV ONE (21:30)
[2017-02-06] MEDS ORDERED: IPRATROPIUM NEB FS 0.5 MG/2.5 ML AMPUL.NEB NEB ONE ×2 (21:30→22:30)
[2017-02-06] MEDS ORDERED: ALBUTEROL FS 2.5 MG/0.5 ML VIAL.NEB NEB ONE (21:30)
[2017-02-06 21:35] LABS: BASOPHILS % (AUTO) 0.4 % (0.0-2.0); EOSINOPHILS % (AUTO) 0.2 % (0.0-6.0); HEMATOCRIT 39 % (39-51); HEMOGLOBIN 12.5 g/dL (13.5-17.5); LYMPHOCYTES % (AUTO) 10.1 % (20.0-44.0); MEAN CORPUSCULAR HEMOGLOBIN 27 PG (26.0-33.0); MEAN CORPUSCULAR HGB CONC 32 g/dl (31.0-36.0); MEAN CORPUSCULAR VOLUME 85 fL (80-96); MONOCYTES # (AUTO) 1.2 /CMM (0.1-1.30); MONOCYTES % (AUTO) 11.4 % (2.0-12.0); NEUTROPHILS % (AUTO) 77.9 % (43.0-81.0); PLATELET COUNT (AUTO) 224 /CMM (150-450); RDW COEFFICIENT OF VARIATION 17.4 (11.5-15.0); WHITE BLOOD COUNT (AUTO) 10.2 K/uL (4.3-11.0)
[2017-02-06 21:45] LABS: APPEARANCE,URINE SLIGHTLY CLOUDY (CLEAR); COLOR,URINE YELLOW (YELLOW)
[2017-02-06 21:46] LABS: PH,URINE 5.5 (5.0-8.0); PROTEIN,URINE 3+ mg/dl (NEGATIVE); UGLUCOSE NEGATIVE (NEGATIVE)
[2017-02-06 21:47] LABS: BILIRUBIN,URINE 1+ (NEGATIVE); BLOOD, URINE 2+ Ery/uL (NEGATIVE); KETONES,URINE TRACE (NEGATIVE); LEUKOCYTE ESTERASE ,URINE NEGATIVE (NEGATIVE); NITRITE, URINE NEGATIVE (NEGATIVE); UROBILINOGEN,URINE 0.2 EU/dL (0.2)
[2017-02-06 21:49] LABS: INR 0.93 (0.87-1.13); PROTHROMBIN TIME 9.7 SECS (9.5-12.7)
[2017-02-06 21:53] LABS: ALANINE AMINOTRANSFERASE 31 U/L (12-78); ALBUMIN 3.2 g/dL (3.4-5.0); ALKALINE PHOSPHATASE 118 U/L (46-116); ASPARTATE AMINOTRANSFERASE 44 U/L (15-37); BILIRUBIN,DIRECT 0.1 mg/dL (0.0-0.2); BILIRUBIN,TOTAL 0.4 mg/dL (0.2-1.0); CALCIUM, SERUM 9.9 mg/dL (8.5-10.1); CARBON DIOXIDE 36 mmol/L (21-32); CHLORIDE 101 mmol/L (98-107); CREATININE 1.1 mg/dL (0.6-1.3); GLUCOSE 109 mg/dL (74-106); POTASSIUM 4.9 mmol/L (3.5-5.1); SODIUM SERUM 141 mmol/L (136-145); TOTAL PROTEIN, SERUM 7.3 g/dL (6.4-8.2); UREA NITROGEN, BLOOD 57 mg/dL (7-18)
[2017-02-06 21:53] LABS: BACTERIA,URINE None seen /HPF (None Seen); SQUAMOUS EPITHELIAL CELL,UR Few /HPF (None Seen)
[2017-02-06 21:54] LABS: URINE AMORPHOUS URATE Few /HPF (None Seen)
[2017-02-06 21:58] LABS: TROPONIN I 1.019 ng/mL (0.00-0.056)
[2017-02-06] MEDS ORDERED: ASPIRIN 300 MG/SUPP.RECT RC ONE ×2 (22:00→22:24)
[2017-02-06] MEDS ORDERED: LEVOFLOXACIN 750 MG /D5W 150ML 750 MG in PREMIX 1 EA IV SCH (22:00)
[2017-02-06] MEDS ORDERED: PROPOFOL 100 ML IV ONE ×2 (22:04→22:30)
--- NOTE | 2017-02-06 22:15 | NUR ---
PT INTUBATRED PER MD BLAZE ORDER, PT INTUBATED WITH A 8 SLOVENIAN AT 24 AT THE LIP, PT STARTED ON PROPOFOL RIGHT AFTER INTUBATION PER MD BLAZE ORDER. VSS WILL CONTINUE TO MONITOR.
[2017-02-06 22:20] VITALS: BP 104/66
--- NOTE | 2017-02-06 22:20 | NUR ---
CALLED MICHELLE FOR STAT READ ON CHEST X-RAY
[2017-02-06] MEDS ORDERED: LEVOFLOXACIN 750 MG /D5W 150ML 150 ML IV ONE (22:23)
[2017-02-06] MEDS ORDERED: ALBUTEROL FS 2.5 MG/3 ML VIAL.NEB CONTNEB ONE (22:30)
[2017-02-06] MEDS ORDERED: FENTANYL PF 100MCG/2ML AMPUL IV ONE (22:30)
[2017-02-06] MEDS ORDERED: ETOMIDATE 2 MG/ML VIAL IV ONE (22:30)
[2017-02-06] MEDS ORDERED: IV NS 0.9% 500 ML BAG IV ONE (22:30)
[2017-02-06] MEDS ORDERED: Magnesium 1 GM/2 ML VIAL IV ONE (22:30)
[2017-02-06] MEDS ORDERED: ROCURONIUM BROMIDE 100 MG/10 ML VIAL IV ONE (22:30)
[2017-02-06] MEDS ORDERED: ALBUTEROL FS 2.5 MG/3 ML VIAL.NEB ONE (22:55)
[2017-02-06] MEDS ORDERED: Magnesium 1GM/D5W 100ML PREMIX 200 ML IV ONE (22:56)
[2017-02-06] MEDS ORDERED: FENTANYL PF 100MCG/2ML AMPUL ONE (22:57)
[2017-02-06] MEDS ORDERED: IV NS 0.9% 1,000 ML BAG IV ONE (23:00)
--- NOTE | 2017-02-06 23:00 | NUR ---
PT IN BED VSS, PT SEDATED, MD MADE AWARE WILL CONTINUE TO MONITOR.
[2017-02-06 23:01] VITALS: BP 147/90
[2017-02-06 23:07] LABS: ABG BASE EXCESS 8.1 mmol/L; ABG OXYGEN SATURATION 73.3 % (92.0-98.5); ABG PCO2 59.3 mmHg (35.0-45.0); ABG PH 7.386 (7.350-7.450); ABG PO2 39.4 mmHg (75.0-100.0); COHb 1.2 % (0.5-1.5); MetHb 0.6 % (0.0-1.5); PEEP,BG 5 cm H2O; VENT MODE, BG VENOUS AC 14 500 40% +5; VT, ABG 500 mL
--- NOTE | 2017-02-06 23:10 | NUR ---
CALLED NURSING HOUSE NURSE FOR ICU BED
--- NOTE | 2017-02-06 23:16 | NUR ---
ICU 264
--- NOTE | 2017-02-06 23:23 | NUR ---
PT IN BED ON MONITOR, VSS, PT FAMILY AT BEDSIDE, WILL CONTINUE TO MONITOR.
--- NOTE | 2017-02-06 23:27 | NUR ---
IS PT KAREL DOZIER
--- NOTE | 2017-02-06 23:50 | NUR ---
PAGED DR CONTE CATCHER HELPER FOR [facility] FOR PANEL ADMISSION
[2017-02-07] VITALS (43 sets, daily range): BP systolic 88–140; BP diastolic 50–89
--- NOTE | 2017-02-07 00:14 | NUR ---
PT IN BED IN NO APPARENT DISTRESS, PT ON MONITOR, VSS WILL, MD MADE AWARE WILL CONTINUE TO MONITOR.
--- NOTE | 2017-02-07 00:22 | NUR ---
REPAGED DR CONTE FOR PANEL ADMISSION
[2017-02-07] MEDS ORDERED: Z GUARD REMEDY 2 OZ OINT TP PRN (01:30)
[2017-02-07] MEDS ORDERED: BISACODYL (5 MG) 5 MG TABLET.DR PO PRN (01:30)
[2017-02-07] MEDS ORDERED: ONDANSETRON HCL/PF 4 MG/2 ML VIAL IVP PRN (01:30)
[2017-02-07] MEDS ORDERED: ACETAMINOPHEN 325 MG TABLET PO PRN ×2 (01:30)
[2017-02-07] MEDS ORDERED: IV NS 0.9% 1,000 ML BAG IV ONE ×2 (01:30)
[2017-02-07] MEDS ORDERED: NA PHOS,M-B/NA PHOS,DI-BA 1 EA ENEMA RC PRN (01:30)
[2017-02-07] MEDS ORDERED: HYDROCODONE/APAP 5/325MG 1 EACH TABLET PO PRN (01:30)
[2017-02-07] MEDS ORDERED: MAGNESIUM HYDROXIDE 30 ML UDC PO PRN ×2 (01:30)
[2017-02-07] MEDS ORDERED: INSULIN REGULAR, HUMAN 100 UNIT/ML 3 ML VIAL SQ PRN (01:30)
[2017-02-07] MEDS ORDERED: ZOLPIDEM TARTRATE 5 MG TABLET PO PRN (01:30)
[2017-02-07] MEDS ORDERED: MAG HYDROX/AL HYDROX/SIMETH 30 ML UDC PO PRN (01:30)
[2017-02-07] MEDS ORDERED: PANTOPRAZOLE 40 MG VIAL IV SCH (01:30)
--- NOTE | 2017-02-07 01:30 | NUR ---
GRADUATE SCHOOL DEAN NOTES RECEIVED PT ON CY FROM ER. DX OF ACUTE RESPIRATORY DISTRESS. TELE READS SR AT 96 BPM. [facility] AT ORDERED SETTING, LEMUEL WELL. LEFT HAND 18G AND RIGHT WRIST 16G PIV, RUNNING DIPRIVAN AT 10 MCG/KG/MIN. MULTIPLE SKIN TEARS AT BILATERAL LOWER LEGS, PICTURES TAKEN, . NO S/S OF PAIN, SIDE RAILS X3, HOB ELEVATED, TURNED AND REPOSITIONED. WAITING FOR ADMISSION ORDERS.
[2017-02-07] MEDS ORDERED: PANTOPRAZOLE 40 MG VIAL ONE (01:53)
[2017-02-07] MEDS ORDERED: IV NS 0.9% 1,000 ML IV ONE (02:00)
[2017-02-07] MEDS ORDERED: PROPOFOL 100 ML IV PRN (02:00)
[2017-02-07] MEDS ORDERED: AZITHROMYCIN 500 MG VIAL ONE (02:08)
[2017-02-07] MEDS: AZITHROMYCIN 500 MG in IV D5W 250 ML IV SCH (02:14)
[2017-02-07] MEDS ORDERED: DEXTROSE 50%-WATER 50 ML DISP.SYRIN IV PRN ×2 (02:30→08:30)
[2017-02-07] MEDS ORDERED: ALBUTEROL FS 2.5 MG/3 ML VIAL.NEB ONE ×2 (03:08→07:55)
[2017-02-07] MEDS ORDERED: IPRATROPIUM NEB FS 0.5 MG/2.5 ML AMPUL.NEB ONE ×2 (03:09→07:55)
[2017-02-07] MEDS: IPRATROPIUM NEB FS 0.5 MG/2.5 ML AMPUL.NEB NEB SCH ×6 (03:12→23:25)
[2017-02-07] MEDS: ALBUTEROL FS 2.5 MG/3 ML VIAL.NEB NEB SCH ×6 (03:13→23:25)
[2017-02-07] MEDS ORDERED: BLOOD SUGAR DIAGNOSTIC 1 EACH STRIP IN SCH (06:00)
[2017-02-07] MEDS ORDERED: PROPOFOL 100 ML IV ONE (06:11)
[2017-02-07] MEDS: PROPOFOL 100 ML IV PRN ×4 (06:15→22:16)
[2017-02-07] MEDS ORDERED: Medication Not On Formulary EA (Blood Sugar Diagnostic, Drum (Accu-Chek Compact) 1 EACH) IN SCH (07:30)
[2017-02-07] MEDS ORDERED: INSULIN REGULAR, HUMAN 100 UNIT/ML 3 ML VIAL SQ SCH (07:30)
[2017-02-07] MEDS: methylPREDNISolone SOD SUCC 125 MG/2ML VIAL IV SCH (08:34)
[2017-02-07] MEDS: FERROUS SULFATE (325 MG) 325 MG/TAB TABLET PO SCH (08:34)
[2017-02-07] MEDS: METOPROLOL TARTRATE 25 MG TABLET PO SCH ×2 (08:34→17:16)
[2017-02-07] MEDS: MULTIVITAMINS,THERAGRAN 1 UDTAB TABLET PO SCH (08:35)
[2017-02-07] MEDS: ASPIRIN 81 MG TAB.CHEW PO SCH (08:35)
[2017-02-07] MEDS: METFORMIN 500 MG TABLET PO SCH ×2 (08:35→17:16)
[2017-02-07] MEDS: TAMSULOSIN 0.4 MG CAP.SR.24H PO SCH ×2 (08:35→17:16)
[2017-02-07] MEDS ORDERED: TIOTROPIUM BROMIDE 6 CAP/BOX CAP.W.DEV IH SCH (09:00)
[2017-02-07] MEDS ORDERED: ENOXAPARIN SODIUM 80 MG/0.8 ML DISP.SYRIN SQ SCH (09:00)
[2017-02-07] MEDS: FLUTICASONE/VILANTEROL 1 EACH BLST.W.DEV IH SCH (09:00)
[2017-02-07] MEDS ORDERED: FUROSEMIDE 20 MG TABLET PO SCH (09:00)
[2017-02-07] MEDS: CLOPIDOGREL BISULFATE 75 MG TABLET NG SCH (09:09)
--- NOTE | 2017-02-07 09:16 | NUR ---
ENERGY ECONOMIST NOTE 0720: Received patient sedated. With ETT to vent, tolerated settings well. No respiratory distress noted at this time. With PIVs intact, on Diprivan @ 30mcg. IVF infusing as ordered. Patel cath intact. Inserted NGT on left nares, patient tolerated, noted with gurgling sound on the gastric region during auscultation when introduced air. Patel cath intact, noted with minimal amount of clear yellow urine drained to BSD. SR 70's on the monitor. 0820: Rendered sedation vacation, patient able to follow commands but noted with trying to pull out invasive tubings, placed back on Propofol. 0830: S/E by Dr. Amin for cardio consult, obtained order for Lovenox and Plavix. aware for the ST depression. 0840: S/E by wound nurse, obtained new order for skin treatment.
--- NOTE | 2017-02-07 10:03 | NUR ---
WOUND CARE CONSULT PATIENT SEEN AND SKIN INTEGRITY ASSESSMENT DONE. SEE SALES SUPPORT MANAGER ASSESSMENT IN PCS FOR TODAY ALONG WITH ALL RECOMMENDATIONS. RECOMMEND PODIATRY FOR LOWER EXTREMITY ULCERATIONS POA. PATIENT WITH CURRENT MICHAEL AT 10, 1ST STEP LOW AIRLOSS MATTRESS ORDERED AND TO BE PLACE WHEN AVAILABLE IN THE UNIT FOR SKIN MANAGEMENT FOR LOW MICHAEL. CONTINUE TURNING Q 2 HOURS PATIENT CONDITION PERMITS, AND CONTINUE BILATERAL HEEL FLOATING. CONTINUE USE OF Z GUARD CURRENTLY ORDERED FOR SKIN/MOISTURE MANAGMENT. ALL DISCUSSED WITH NURSING AT THE BEDSIDE. Addendum: 02/07/17 at 1006 by SUDHIR FELTON WNDNU Amended: Links added.
[2017-02-07 10:36] LABS: ABG BASE EXCESS 2.9 mmol/L; ABG OXYGEN SATURATION 96.9 % (92.0-98.5); ABG PCO2 57.7 mmHg (35.0-45.0); ABG PH 7.331 (7.350-7.450); ABG PO2 101.7 mmHg (75.0-100.0); AaDO2 117.1 mmHg; COHb 0.2 % (0.5-1.5); MetHb 0.6 % (0.0-1.5); O2Hb 96.1 % (94.0-97.0); PEEP,BG 5 cm H2O; SITE, ABG Right Radial; VT, ABG 500 mL
--- NOTE | 2017-02-07 10:56 | NUR ---
CHEMISTRY INSTRUCTOR NOT^E S/E by Dr. Denson, family at bedside, discussed re: the POC. MD aware for the ABG, will continue same settings at this time, and will check again CXR and ABG in am. also ordered to decrease IVF @ 75 TFO and will start on GT feeding.
[2017-02-07] MEDS ORDERED: GLYTROL 1,000 ML BAG GT PRN (11:00)
[2017-02-07] MEDS ORDERED: IV NS 0.9% 1,000 ML BAG IV PRN (11:00)
[2017-02-07] MEDS: BLOOD SUGAR DIAGNOSTIC 1 EACH STRIP IN SCH ×3 (12:05→23:58)
[2017-02-07] MEDS: NEOMY SULF/BACITRAC ZN/POLY 15 GM TUBE TP SCH (12:05)
[2017-02-07] MEDS: INSULIN REGULAR, HUMAN 100 UNIT/ML 3 ML VIAL SQ PRN ×2 (12:06→17:17)
[2017-02-07] MEDS: IV NS 0.9% 1,000 ML IV PRN (13:26)
[2017-02-07] MEDS ORDERED: ROCURONIUM BROMIDE 50 MG/5 ML IV ONE (15:35)
[2017-02-07] MEDS ORDERED: FEE EMEERGENCY 1 MIN EA MC ONE (15:35)
[2017-02-07] MEDS ORDERED: ETOMIDATE 2 MG/ML VIAL IV ONE (15:35)
[2017-02-07] MEDS: GLYTROL 1,000 ML BAG GT PRN (15:52)
--- NOTE | 2017-02-07 17:30 | NUR ---
CONSULTING SOLUTION MANAGER NOTES RECEIVED PATIENT SEDATED , RESPONSIVE TO PAIN STIMULI , NOT IN ACUTE DISTRESS , RESPIRATION EVEN AND UNLABORED WITH SPO2 OF 100% VIA MECHANICAL VENTILATOR SETTINGS ORDERED . ETT 8.0 / [address] , SR 85 ON BEDSIDE MONITOR , L NARE NGT PATENT AND INTACT PLACEMENT VERIFIED VIA AUSCULTATION NOTED WITH GURGLING SOUNDS , NGT FEEDING OF GLYTROL @ 40ML/HR INFUSING WELL , IV @ HAND @ 18 PATENT AND INTACT WITH NS @ 75ML/HR AND DIPRIVAN @ 35MCG/MIN , , R WRIST @ 16 PATENT AND INTACT NOTED WITH BLEEDING , ALL NEEDS ATTENDED , BED ON LOW AND LOCKED POSITION , SIDE RAILS X3 , HOB @ 45 , WILL CONTINUE TO MONITOR
--- NOTE | 2017-02-07 19:15 | NUR ---
Received patient sedated on Diprivan drip at 35 mcg/kg/min to heplock left hand and site intact. Currently intubated to vent on AC mode.Vent settings well tolerated.SPO2 98%-99%.No respiratory distress noted.SR per monitor.VS stable.Hemodynamically stable.NGT feeding Glytrol infusing at 60 ml/hr with HOB elevated.Residual 10 ml.NGT placement verified by aspiration and auscultation.Abdomen soft with active bowel sounds.FC to gravity drainage with clear yellow urine.Continue to monitor.
--- NOTE | 2017-02-07 19:45 | NUR ---
Left upper arm MIDLINE inserted with good blood returned by Ghassan,RN PICC LINE TEAM.
[2017-02-07] MEDS ORDERED: INSULIN DETEMIR 100 UNIT/ML CARTRIDGE SQ SCH (22:00)
[2017-02-07] MEDS: ATORVASTATIN 10 MG TABLET NG SCH (22:14)
[2017-02-08] VITALS (35 sets, daily range): BP systolic 91–113; BP diastolic 51–70
[2017-02-08] MEDS: AZITHROMYCIN 500 MG in IV D5W 250 ML IV SCH (01:31)
[2017-02-08] MEDS: IV NS 0.9% 1,000 ML IV PRN ×2 (02:28→16:34)
[2017-02-08] MEDS: ALBUTEROL FS 2.5 MG/3 ML VIAL.NEB NEB SCH ×6 (03:37→23:36)
[2017-02-08] MEDS: IPRATROPIUM NEB FS 0.5 MG/2.5 ML AMPUL.NEB NEB SCH ×6 (03:37→23:36)
[2017-02-08] MEDS: PROPOFOL 100 ML IV PRN ×4 (04:36→22:08)
[2017-02-08 04:46] LABS: HEMATOCRIT 34 % (39-51); HEMOGLOBIN 11.1 g/dL (13.5-17.5); LYMPHOCYTES # (AUTO) 0.3 /CMM (0.8-4.8); LYMPHOCYTES % (AUTO) 3.1 % (20.0-44.0); MEAN CORPUSCULAR HEMOGLOBIN 28 PG (26.0-33.0); MEAN CORPUSCULAR HGB CONC 32 g/dl (31.0-36.0); MEAN CORPUSCULAR VOLUME 86 fL (80-96); MONOCYTES # (AUTO) 0.7 /CMM (0.1-1.30); MONOCYTES % (AUTO) 7.9 % (2.0-12.0); NEUTROPHILS # (AUTO) 7.9 /CMM (1.8-8.9); PLATELET COUNT (AUTO) 154 /CMM (150-450); RDW COEFFICIENT OF VARIATION 18.8 (11.5-15.0); RED BLOOD CELL COUNT(AUTO) 4.01 MIL/uL (4.5-6.0); WHITE BLOOD COUNT (AUTO) 8.9 K/uL (4.3-11.0)
[2017-02-08 05:01] LABS: CHOLESTEROL 198 mg/dL (<200); HDL CHOLESTEROL 91 mg/dL (40-60); LDL 87 mg/dL (0-99); TRIGLYCERIDES 106 mg/dL (30-150)
[2017-02-08 05:03] LABS: GLUCOSE 342 mg/dL (74-106); PHOSPHORUS 2.8 mg/dL (2.5-4.9); UREA NITROGEN, BLOOD 42 mg/dL (7-18)
[2017-02-08 05:07] LABS: CARBON DIOXIDE 33 mmol/L (21-32); CHLORIDE 102 mmol/L (98-107); POTASSIUM 3.8 mmol/L (3.5-5.1); SODIUM SERUM 141 mmol/L (136-145)
[2017-02-08] MEDS: BLOOD SUGAR DIAGNOSTIC 1 EACH STRIP IN SCH ×4 (06:38→21:00)
[2017-02-08] MEDS: INSULIN REGULAR, HUMAN 100 UNIT/ML 3 ML VIAL SQ PRN ×5 (06:41→21:03)
--- NOTE | 2017-02-08 06:50 | NUR ---
Patient remains sedated on DIPRIVAN drip at 30 mcg.SR.VS stable.Hemodynamically stable. NGT feeding now at 75 ml/hr well tolerated.No acute distress noted.Bathed and wound dressing changed.Turned and repositioned.
[2017-02-08] MEDS: METFORMIN 500 MG TABLET PO SCH ×2 (08:25→16:35)
[2017-02-08] MEDS: MULTIVITAMINS,THERAGRAN 1 UDTAB TABLET PO SCH (08:25)
[2017-02-08] MEDS: ASPIRIN 81 MG TAB.CHEW PO SCH (08:26)
[2017-02-08] MEDS: CLOPIDOGREL BISULFATE 75 MG TABLET NG SCH (08:26)
[2017-02-08] MEDS: TAMSULOSIN 0.4 MG CAP.SR.24H PO SCH ×2 (08:26→16:35)
[2017-02-08] MEDS: METOPROLOL TARTRATE 25 MG TABLET PO SCH ×2 (08:26→16:35)
[2017-02-08] MEDS: methylPREDNISolone SOD SUCC 125 MG/2ML VIAL IV SCH (08:26)
[2017-02-08] MEDS: FERROUS SULFATE (325 MG) 325 MG/TAB TABLET PO SCH (08:26)
[2017-02-08] MEDS: PANTOPRAZOLE 40 MG VIAL IV SCH (08:26)
[2017-02-08] MEDS: FLUTICASONE/VILANTEROL 1 EACH BLST.W.DEV IH SCH (08:26)
[2017-02-08] MEDS: NEOMY SULF/BACITRAC ZN/POLY 15 GM TUBE TP SCH (08:27)
[2017-02-08 09:10] LABS: ABG BASE EXCESS 6.4 mmol/L; ABG OXYGEN SATURATION 95.4 % (92.0-98.5); ABG PCO2 58.7 mmHg (35.0-45.0); ABG PH 7.371 (7.350-7.450); ABG PO2 86.3 mmHg (75.0-100.0); AaDO2 58.6 mmHg; MetHb 0.5 % (0.0-1.5); O2Hb 94.9 % (94.0-97.0); PEEP,BG 5 cm H2O; SITE, ABG Right Radial; VT, ABG 500 mL
--- NOTE | 2017-02-08 09:50 | NUR ---
ENVIRONMENTAL PLANNING ENGINEER NOTE 0720: Received patient sedated. With ETT to vent, tolerated settings well. No respiratory distress noted at this time. Noted with moderate amount of thick forrester secretions when suctioned orally and via ETT. With left NGT intact, feeding tolerated well, no residuals. Kept HOB elevated. With IRENE midline intact, on Diprivan @ 30, and NS @ 75. With Patel cath intact, noted with minimal gerardo colored urine with sediments. 0920: Rendered sedation vacation, able to follow commands, rendered reality orientation. But noted with trying to reach and remove ETT, placed back on Propofol @ 35. Will continue to monitor.
[2017-02-08] MEDS: GLYTROL 1,000 ML BAG GT PRN (09:55)
[2017-02-08] MEDS ORDERED: INSULIN DETEMIR 100 UNIT/ML CARTRIDGE SQ ONE (11:30)
[2017-02-08] MEDS ORDERED: DEXTROSE 50%-WATER 50 ML DISP.SYRIN IV PRN (11:30)
--- NOTE | 2017-02-08 20:00 | NUR ---
Patient remain sedated on Diprivan drip at 35 mcg.Intubated to vent on same settings well tolerated . Spo2 98%.Suctioned small amount white secretions.Oral care done.NGT feeding infusing at 75 ml/hr. Residual 5ml.HOB elevated.No distress noted.IVF infusing to IRENE MIDLINE site intact.Turned and repositioned.SR no ectopies noted.VS stable.Hemodynamically stable.FC with minimal yellow output.
--- NOTE | 2017-02-08 20:30 | NUR ---
Patient son twin son visiting.Updated of patient status and plan of care.Son able to talk to in the unit.
[2017-02-08] MEDS: INSULIN DETEMIR 100 UNIT/ML CARTRIDGE SQ SCH (21:02)
[2017-02-08] MEDS: ATORVASTATIN 10 MG TABLET NG SCH (21:24)
[2017-02-09] VITALS (30 sets, daily range): BP systolic 96–149; BP diastolic 60–79
[2017-02-09] MEDS: BLOOD SUGAR DIAGNOSTIC 1 EACH STRIP IN SCH ×5 (01:00→21:38)
[2017-02-09] MEDS: AZITHROMYCIN 500 MG in IV D5W 250 ML IV SCH (01:01)
[2017-02-09] MEDS: INSULIN REGULAR, HUMAN 100 UNIT/ML 3 ML VIAL SQ PRN ×3 (01:02→09:06)
[2017-02-09] MEDS: PROPOFOL 100 ML IV PRN ×2 (02:04→07:19)
[2017-02-09] MEDS: GLYTROL 1,000 ML BAG GT PRN (02:05)
[2017-02-09] MEDS: IPRATROPIUM NEB FS 0.5 MG/2.5 ML AMPUL.NEB NEB SCH ×6 (03:50→23:39)
[2017-02-09] MEDS: ALBUTEROL FS 2.5 MG/3 ML VIAL.NEB NEB SCH ×6 (03:50→23:39)
[2017-02-09 04:43] LABS: EOSINOPHILS % (AUTO) 0.1 % (0.0-6.0); HEMATOCRIT 30 % (39-51); HEMOGLOBIN 9.5 g/dL (13.5-17.5); LYMPHOCYTES # (AUTO) 0.5 /CMM (0.8-4.8); LYMPHOCYTES % (AUTO) 5.6 % (20.0-44.0); MEAN CORPUSCULAR HEMOGLOBIN 28 PG (26.0-33.0); MEAN CORPUSCULAR HGB CONC 32 g/dl (31.0-36.0); MEAN CORPUSCULAR VOLUME 86 fL (80-96); MONOCYTES # (AUTO) 0.5 /CMM (0.1-1.30); MONOCYTES % (AUTO) 5.8 % (2.0-12.0); NEUTROPHILS # (AUTO) 7.9 /CMM (1.8-8.9); NEUTROPHILS % (AUTO) 88.5 % (43.0-81.0); PLATELET COUNT (AUTO) 138 /CMM (150-450); RDW COEFFICIENT OF VARIATION 18.8 (11.5-15.0); RED BLOOD CELL COUNT(AUTO) 3.43 MIL/uL (4.5-6.0); WHITE BLOOD COUNT (AUTO) 8.9 K/uL (4.3-11.0)
[2017-02-09 05:22] LABS: CALCIUM, SERUM 6.4 mg/dL (8.5-10.1); CARBON DIOXIDE 27 mmol/L (21-32); CHLORIDE 109 mmol/L (98-107); CREATININE 0.6 mg/dL (0.6-1.3); GLUCOSE 205 mg/dL (74-106); MAGNESIUM 1.8 mg/dL (1.8-2.4); PHOSPHORUS 1.9 mg/dL (2.5-4.9); POTASSIUM 4.7 mmol/L (3.5-5.1); SODIUM SERUM 142 mmol/L (136-145); UREA NITROGEN, BLOOD 37 mg/dL (7-18)
[2017-02-09] MEDS: IV NS 0.9% 1,000 ML IV PRN ×2 (06:30→23:25)
--- NOTE | 2017-02-09 06:53 | NUR ---
Please disregard critical value of Magnesium 1.2.Wrong entry.Belongs to another patient.
--- NOTE | 2017-02-09 07:14 | NUR ---
Patient remains sedated on Diprivan drip at 35 mcg.VS stable.No significant change noted all throughout the shift.Tube feeding well tolerated.No distress noted.Bathed and wound dressing changed.Turned and repositioned.
[2017-02-09] MEDS: METFORMIN 500 MG TABLET PO SCH ×2 (08:12→17:03)
[2017-02-09] MEDS: PANTOPRAZOLE 40 MG VIAL IV SCH (08:12)
[2017-02-09] MEDS: methylPREDNISolone SOD SUCC 125 MG/2ML VIAL IV SCH (08:12)
[2017-02-09] MEDS: FERROUS SULFATE (325 MG) 325 MG/TAB TABLET PO SCH (08:12)
[2017-02-09] MEDS: MULTIVITAMINS,THERAGRAN 1 UDTAB TABLET PO SCH (08:13)
[2017-02-09] MEDS: CLOPIDOGREL BISULFATE 75 MG TABLET NG SCH (08:13)
[2017-02-09] MEDS: NEOMY SULF/BACITRAC ZN/POLY 15 GM TUBE TP SCH (08:13)
[2017-02-09] MEDS: ASPIRIN 81 MG TAB.CHEW PO SCH (08:13)
[2017-02-09] MEDS: TAMSULOSIN 0.4 MG CAP.SR.24H PO SCH ×2 (08:13→17:03)
[2017-02-09] MEDS: FLUTICASONE/VILANTEROL 1 EACH BLST.W.DEV IH SCH (08:13)
[2017-02-09] MEDS: METOPROLOL TARTRATE 25 MG TABLET PO SCH ×2 (08:14→17:03)
[2017-02-09 11:22] LABS: ABG BASE EXCESS 1.7 mmol/L; ABG OXYGEN SATURATION 96.3 % (92.0-98.5); ABG PCO2 54.3 mmHg (35.0-45.0); ABG PH 7.337 (7.350-7.450); AaDO2 59.1 mmHg; COHb 0.3 % (0.5-1.5); MetHb 0.3 % (0.0-1.5); O2Hb 95.7 % (94.0-97.0); SITE, ABG Right Brachial; VENT MODE, BG CPAP 5/ PS 10
--- NOTE | 2017-02-09 11:45 | NUR ---
PT EXTUBATED POST ABG AND CPAP TRAIL. WITH MD AT BEDSIDE. ZERO DISTRESS NOTED AT THIS TIME. PT ON 2LPM N/C
--- NOTE | 2017-02-09 11:52 | NUR ---
VOCATIONAL TRAINING INSTRUCTOR NOTE 1020: S/E by Dr. Agee, with order to place patient on Cpap trial. Turned off Diprivan. 1035: Patient fully awake, aware for the POC. RT placed patient on CPAP. 1130: ABG done, Dr. Agee in the unit aware, with order to extubate. 1140: Extubated patient, tolerated, able to cough, no stridor noted. Placed patient to chair as requested. RT given breathing treatment for increased WOB, RR 19, Sat 96% on room air. Now 100 while on breathing treatment, patient verbalized breathing better on chair and on breathing treatment ongoing.
[2017-02-09] MEDS ORDERED: DEXTROSE 50%-WATER 50 ML DISP.SYRIN IV PRN (13:00)
[2017-02-09] MEDS ORDERED: *INSULIN REGULAR(HUMULIN R)HUM 100 UNIT/ML VIAL SQ PRN (13:00)
[2017-02-09] MEDS ORDERED: NEUTRA PHOS 1 POWD.PACKET NG ONE (13:00)
[2017-02-09] MEDS ORDERED: INSULIN REGULAR, HUMAN 100 UNIT/ML 3 ML VIAL SQ PRN (13:00)
--- NOTE | 2017-02-09 16:40 | NUR ---
GARAGE LABORER NOTE Patient A/Ox3, offered to rest on the bed, patient prefers to sit on the chair. On room air, 95% O2 sat.
--- NOTE | 2017-02-09 19:40 | NUR ---
ASSISTANT CONTROLLER INITIAL NOTE RECEIVED REPORT FROM ENEDINA RODRÍGUEZ. PT UP IN CHAIR AT BEDSIDE. PT IS A/A/O X3 WITH A LOW VOICE WHEN SPEAKING. PT SPEAKS TAJIK. LUNG SOUNDS CRACKLES. NO O2 USE AT THIS TIME PER PT REQUEST. BOWEL SOUNDS PRESENT, USES BEDSIDE COMMODE WITH ASSISTANCE. CALL LIGHT WITH IN REACH. IV PATENT AND INTACT. WILL CONTINUE TO MONITOR.
[2017-02-09] MEDS: MUPIROCIN OINT 2% 22 GM TUBE SCH (21:37)
[2017-02-09] MEDS: INSULIN DETEMIR 100 UNIT/ML CARTRIDGE SQ SCH (21:38)
[2017-02-09] MEDS: ATORVASTATIN 10 MG TABLET NG SCH (21:38)
[2017-02-09] MEDS: AZITHROMYCIN 250 MG TABLET GT SCH (23:25)
[2017-02-10] VITALS (27 sets, daily range): BP systolic 111–149; BP diastolic 36–88
[2017-02-10] MEDS: IPRATROPIUM NEB FS 0.5 MG/2.5 ML AMPUL.NEB NEB SCH ×6 (03:33→22:44)
[2017-02-10] MEDS: ALBUTEROL FS 2.5 MG/3 ML VIAL.NEB NEB SCH ×6 (03:33→22:44)
--- NOTE | 2017-02-10 06:10 | NUR ---
WINE CELLAR WORKER LAB CALLED WITH CRITICAL VALUE. GLUCOSE 46. DID A BEDSIDE FINGER STICK TO VERIFY, BS 41. GAVE OJ AND THEN PUSHED D50.
[2017-02-10 06:17] LABS: CALCIUM, SERUM 9.1 mg/dL (8.5-10.1); CARBON DIOXIDE 35 mmol/L (21-32); CHLORIDE 105 mmol/L (98-107); CREATININE 0.6 mg/dL (0.6-1.3); POTASSIUM 4.5 mmol/L (3.5-5.1); SODIUM SERUM 143 mmol/L (136-145); UREA NITROGEN, BLOOD 30 mg/dL (7-18)
[2017-02-10 06:20] LABS: GLUCOSE 46 mg/dL (74-106)
[2017-02-10] MEDS: BLOOD SUGAR DIAGNOSTIC 1 EACH STRIP IN SCH ×5 (07:30→20:59)
--- NOTE | 2017-02-10 07:44 | NUR ---
RN OTES RECEIVED PT AWAKE OUT OF BED , IN CHAIR WITH NAD. REMAINS ON O2 INH , DENIES PAIN AND SOB. SINUS RHYTHM ON THE MONITOR. ABLE TO MSKE NEEDS KNOWN. CALL LGIHT WITHIN REACH. SAFETY AND COMFORT ENSURED. REMAINS ON ISOLATION WITH NECESSARY PRECAUTION OBSERVED. WILL MONITOR .
[2017-02-10] MEDS: FERROUS SULFATE (325 MG) 325 MG/TAB TABLET PO SCH (08:34)
[2017-02-10] MEDS: CLOPIDOGREL BISULFATE 75 MG TABLET NG SCH (08:34)
[2017-02-10] MEDS: FLUTICASONE/VILANTEROL 1 EACH BLST.W.DEV IH SCH (08:35)
[2017-02-10] MEDS: ASPIRIN 81 MG TAB.CHEW PO SCH (08:35)
[2017-02-10] MEDS: PANTOPRAZOLE 40 MG VIAL IV SCH (08:47)
[2017-02-10] MEDS: methylPREDNISolone SOD SUCC 125 MG/2ML VIAL IV SCH (08:47)
[2017-02-10] MEDS: METOPROLOL TARTRATE 25 MG TABLET PO SCH ×2 (08:48→16:32)
[2017-02-10] MEDS: METFORMIN 500 MG TABLET PO SCH ×2 (08:48→16:32)
[2017-02-10] MEDS: TAMSULOSIN 0.4 MG CAP.SR.24H PO SCH ×2 (08:48→16:32)
[2017-02-10] MEDS: MUPIROCIN OINT 2% 22 GM TUBE SCH ×2 (08:50→21:00)
[2017-02-10] MEDS: NEOMY SULF/BACITRAC ZN/POLY 15 GM TUBE TP SCH (08:50)
[2017-02-10] MEDS: MULTIVITAMINS,THERAGRAN 1 UDTAB TABLET PO SCH (09:18)
[2017-02-10] MEDS ORDERED: NEUTRA PHOS 1 POWD.PACKET NG ONE (12:00)
[2017-02-10] MEDS ORDERED: LORAZEPAM INJ 2 MG/ML VIAL IV PRN (12:30)
[2017-02-10] MEDS ORDERED: DEXTROSE 50%-WATER 50 ML DISP.SYRIN IV PRN (12:30)
[2017-02-10] MEDS ORDERED: Sodium Phosphate 7.5 MMOL in IV D5W 100 ML IV ONE (13:00)
[2017-02-10] MEDS: INSULIN REGULAR, HUMAN 100 UNIT/ML 3 ML VIAL SQ PRN ×2 (13:32→16:36)
[2017-02-10] MEDS: QUETIAPINE FUMARATE 25 MG TABLET PO SCH (17:28)
--- NOTE | 2017-02-10 18:40 | NUR ---
rn closing notes pt awake on the chair with NAD. remains on o2 inh via nc. all meds given during this shift. no significant changes noted during this shift. denies pain or any discomfort. will endorse to next shift for continuity of care in stable condition.
--- NOTE | 2017-02-10 19:30 | NUR ---
TANK TRUCK OPERATOR INITIAL NOTE RECEIVED REPORT FROM BRETT RN. PT IN UP IN CHAIR. A/A/OX3 WITH SON AT BEDSIDE. LUNG SOUNDS DIMINISHED. BOWEL SOUNDS PRESENT. INCONTINENT TO BOTH URINE AND STOOL. RECEIVED PT WITH STOOL IN DIAPER. PT WAS CLEANED AND SPONGE BATH WAS PROVIDED. PT REFUSES TO RETURN TO BED. HE IS TRIPODING POSITION. ON 2L NC TOLERATING WELL. GENERALIZED EDEMA NOTED. CALL LIGHT WITHIN REACH WILL CONTINUE TO MONITOR.
[2017-02-10] MEDS: ATORVASTATIN 10 MG TABLET NG SCH (21:00)
--- NOTE | 2017-02-10 22:30 | NUR ---
BETTING AGENCY MANAGER PT IS MORE CONFUSED THAN USUAL. PUT PT BACK IN BED, SINCE HE HAS BEEN UP IN DIFFERENT CHAIRS FOR OVER 24HRS. PT WAS MADE COMFORTABLE BY PROVIDING WARM BLANKETS. SPOKE WITH RT REGARDING AN ABG, RT WILL PROVIDED A BREATHING TREATMENT AT THIS TIME. WILL CONTINUE TO MONITOR.
[2017-02-10] MEDS: AZITHROMYCIN 250 MG TABLET GT SCH (22:55)
[2017-02-11] VITALS (22 sets, daily range): BP systolic 103–157; BP diastolic 56–90
[2017-02-11] MEDS: BLOOD SUGAR DIAGNOSTIC 1 EACH STRIP IN SCH ×6 (01:50→21:42)
[2017-02-11] MEDS: INSULIN REGULAR, HUMAN 100 UNIT/ML 3 ML VIAL SQ PRN ×6 (01:52→21:54)
[2017-02-11] MEDS: ALBUTEROL FS 2.5 MG/3 ML VIAL.NEB NEB SCH ×6 (03:23→23:32)
[2017-02-11] MEDS: IPRATROPIUM NEB FS 0.5 MG/2.5 ML AMPUL.NEB NEB SCH ×6 (03:23→23:32)
[2017-02-11 04:53] LABS: CALCIUM, SERUM 9.6 mg/dL (8.5-10.1); CARBON DIOXIDE 37 mmol/L (21-32); CHLORIDE 104 mmol/L (98-107); CREATININE 0.6 mg/dL (0.6-1.3); GLUCOSE 187 mg/dL (74-106); MAGNESIUM 1.6 mg/dL (1.8-2.4); PHOSPHORUS 2.8 mg/dL (2.5-4.9); POTASSIUM 5.1 mmol/L (3.5-5.1); SODIUM SERUM 141 mmol/L (136-145); UREA NITROGEN, BLOOD 24 mg/dL (7-18)
[2017-02-11 05:01] LABS: BASOPHILS # (AUTO) 0.1 /CMM (0.0-0.2); BASOPHILS % (AUTO) 0.8 % (0.0-2.0); EOSINOPHILS # (AUTO) 0.1 /CMM (0.0-0.7); EOSINOPHILS % (AUTO) 0.6 % (0.0-6.0); HEMATOCRIT 37 % (39-51); HEMOGLOBIN 11.8 g/dL (13.5-17.5); LYMPHOCYTES # (AUTO) 1.2 /CMM (0.8-4.8); LYMPHOCYTES % (AUTO) 10.2 % (20.0-44.0); MEAN CORPUSCULAR HEMOGLOBIN 27 PG (26.0-33.0); MEAN CORPUSCULAR HGB CONC 32 g/dl (31.0-36.0); MEAN CORPUSCULAR VOLUME 86 fL (80-96); MONOCYTES # (AUTO) 0.7 /CMM (0.1-1.30); MONOCYTES % (AUTO) 5.7 % (2.0-12.0); NEUTROPHILS # (AUTO) 9.7 /CMM (1.8-8.9); NEUTROPHILS % (AUTO) 82.7 % (43.0-81.0); PLATELET COUNT (AUTO) 183 /CMM (150-450); RDW COEFFICIENT OF VARIATION 19.1 (11.5-15.0); RED BLOOD CELL COUNT(AUTO) 4.35 MIL/uL (4.5-6.0); WHITE BLOOD COUNT (AUTO) 11.7 K/uL (4.3-11.0)
[2017-02-11] MEDS: METOPROLOL TARTRATE 25 MG TABLET PO SCH ×2 (08:32→16:46)
[2017-02-11] MEDS: QUETIAPINE FUMARATE 25 MG TABLET PO SCH ×2 (08:32→16:45)
[2017-02-11] MEDS: METFORMIN 500 MG TABLET PO SCH ×2 (08:32→16:45)
[2017-02-11] MEDS: FERROUS SULFATE (325 MG) 325 MG/TAB TABLET PO SCH (08:32)
[2017-02-11] MEDS: predniSONE 20 MG TABLET PO SCH (08:32)
[2017-02-11] MEDS: PANTOPRAZOLE 40 MG VIAL IV SCH (08:32)
[2017-02-11] MEDS: CLOPIDOGREL BISULFATE 75 MG TABLET NG SCH (08:32)
[2017-02-11] MEDS: ASPIRIN 81 MG TAB.CHEW PO SCH (08:33)
[2017-02-11] MEDS: TAMSULOSIN 0.4 MG CAP.SR.24H PO SCH ×2 (08:33→16:45)
[2017-02-11] MEDS: MULTIVITAMINS,THERAGRAN 1 UDTAB TABLET PO SCH (08:33)
[2017-02-11] MEDS: FLUTICASONE/VILANTEROL 1 EACH BLST.W.DEV IH SCH (08:55)
[2017-02-11] MEDS: MUPIROCIN OINT 2% 22 GM TUBE SCH ×2 (08:56→21:45)
[2017-02-11] MEDS: NEOMY SULF/BACITRAC ZN/POLY 15 GM TUBE TP SCH (08:57)
[2017-02-11] MEDS: Magnesium 1GM/D5W 100ML PREMIX 100 ML IV SCH ×2 (10:53→11:37)
--- NOTE | 2017-02-11 11:53 | NUR ---
CALLED FOR PATIENT FOR [facility] PULMONARY , @ 1143, PATIENT TO GET A CONSENT /RUNNING IV .(!*g/20 g IF PICCLINE IS NOT CT COMPATIBLE) sHE IS TO CALL BACK CHACHA PT IS READY
[2017-02-11] MEDS ORDERED: CT SWABBABLE VALVE TRANS SET 1 EA INFUS.SET MC ONE (14:47)
[2017-02-11] MEDS ORDERED: IOHEXOL-350 100 ML VIAL IV ONE (14:47)
[2017-02-11] MEDS ORDERED: IV NS 0.9% 250 ML IV ONE (14:48)
--- NOTE | 2017-02-11 19:30 | NUR ---
A AUXILIARY INITIAL NOTE RECEIVED PT SITTING UP ON CHAIR. A/O X2 KINYARWANDA SPEAKING AND ABLE TO MAKE SOME NEEDS KNOWN WITH EPISODES OF CONFUSION. PT NOTED IN TRIPODING POSITION AND REFUSING TO GO TO BED. INCONTINENT OF BOWEL AND BLADDER WITH URINAL AT BEDSIDE.PT ENCOURAGED TO USE URINAL NEEDED. TELE- SINUS RHYTHM 86. ON 2L OF O2 VIA NC AND SATURATING AT 96%. AUSCULTATED LUNG SOUNDS AND HEART SOUNDS. LUNG SOUNDS NOTED DIMINISHED BILATERALLY. NO C/O PAIN AT THIS TIME. NO SOB NOTED. IV IRENE MIDLINE PATENT, CLEAN AND FLUSHING WELL. CALL LIGHT WITHIN EASY REACH AT ALL TIMES. WILL CONTINUE TO MONITOR.
[2017-02-11] MEDS: ATORVASTATIN 10 MG TABLET NG SCH (21:42)
[2017-02-12] VITALS (21 sets, daily range): BP systolic 79–154; BP diastolic 42–94
[2017-02-12] MEDS: AZITHROMYCIN 250 MG TABLET GT SCH ×2 (00:03→23:05)
[2017-02-12] MEDS: BLOOD SUGAR DIAGNOSTIC 1 EACH STRIP IN SCH ×6 (00:46→20:46)
[2017-02-12] MEDS: ALBUTEROL FS 2.5 MG/3 ML VIAL.NEB NEB SCH ×6 (03:21→23:10)
[2017-02-12] MEDS: IPRATROPIUM NEB FS 0.5 MG/2.5 ML AMPUL.NEB NEB SCH ×6 (03:21→23:10)
[2017-02-12 05:15] LABS: EOSINOPHILS # (AUTO) 0.2 /CMM (0.0-0.7); EOSINOPHILS % (AUTO) 1.1 % (0.0-6.0); HEMATOCRIT 38 % (39-51); HEMOGLOBIN 12.4 g/dL (13.5-17.5); LYMPHOCYTES # (AUTO) 1.3 /CMM (0.8-4.8); LYMPHOCYTES % (AUTO) 8.6 % (20.0-44.0); MEAN CORPUSCULAR HEMOGLOBIN 28 PG (26.0-33.0); MEAN CORPUSCULAR HGB CONC 33 g/dl (31.0-36.0); MEAN CORPUSCULAR VOLUME 85 fL (80-96); MONOCYTES # (AUTO) 0.8 /CMM (0.1-1.30); MONOCYTES % (AUTO) 5.7 % (2.0-12.0); NEUTROPHILS # (AUTO) 12.4 /CMM (1.8-8.9); NEUTROPHILS % (AUTO) 84.6 % (43.0-81.0); PLATELET COUNT (AUTO) 249 /CMM (150-450); RDW COEFFICIENT OF VARIATION 18.3 (11.5-15.0); RED BLOOD CELL COUNT(AUTO) 4.46 MIL/uL (4.5-6.0); WHITE BLOOD COUNT (AUTO) 14.6 K/uL (4.3-11.0)
[2017-02-12 05:27] LABS: CALCIUM, SERUM 10.1 mg/dL (8.5-10.1); CARBON DIOXIDE 38 mmol/L (21-32); CHLORIDE 97 mmol/L (98-107); CREATININE 0.5 mg/dL (0.6-1.3); GLUCOSE 124 mg/dL (74-106); MAGNESIUM 1.5 mg/dL (1.8-2.4); PHOSPHORUS 2.6 mg/dL (2.5-4.9); POTASSIUM 4.9 mmol/L (3.5-5.1); SODIUM SERUM 137 mmol/L (136-145); UREA NITROGEN, BLOOD 24 mg/dL (7-18)
--- NOTE | 2017-02-12 07:00 | NUR ---
RN NOTE RECEIVED PT SITTING UP ON A CHAIR. A/O X2 PASHTO SPEAKING WITH PERIODS OF CONFUSION , REFUSE TO STAY IN BED, PT STATED FEELS BETTER SITTING UP ON A CHAIR , ON RA NO SOB NOTED, O2 SAT 95%, INCONTINENT TO BOWEL AND BLADDER , MALI ANY PAIN , L UPPER ARM MIDLINE CDI, IV L UA MIDLINE PATENT, CLEAN AND FLUSHING WELL. CALL LIGHT WITHIN EASY REACH AT ALL TIMES. WILL CONTINUE TO MONITOR.
--- NOTE | 2017-02-12 07:32 | NUR ---
STERILISATION TECHNICIAN CLOSING NOTE PT REMAINED STABLE DURING SHIFT. NO ACUTE DISTRESS NOTED. NO SOB NOTED. NO C/O PAIN. PT KEPT CLEAN AND DRY. ALL NEEDS ATTENDED TO PROMPTLY. IRENE MIDLINE INTACT. SATURATING 96% ROOM AIR. SITTING ON CHAIR NEXT TO BED. CALL LIGHT WITHIN REACH. ISOLATION PRECAUTIONS OBSERVED. WILL ENDORSE TO NEXT SHIFT FOR CONTINUITY OF CARE.
[2017-02-12] MEDS: FLUTICASONE/VILANTEROL 1 EACH BLST.W.DEV IH SCH (08:21)
[2017-02-12] MEDS: ASPIRIN 81 MG TAB.CHEW PO SCH (08:22)
[2017-02-12] MEDS: MULTIVITAMINS,THERAGRAN 1 UDTAB TABLET PO SCH (08:22)
[2017-02-12] MEDS: TAMSULOSIN 0.4 MG CAP.SR.24H PO SCH ×2 (08:22→16:45)
[2017-02-12] MEDS: METFORMIN 500 MG TABLET PO SCH ×2 (08:22→16:45)
[2017-02-12] MEDS: QUETIAPINE FUMARATE 25 MG TABLET PO SCH ×2 (08:22→16:45)
[2017-02-12] MEDS: METOPROLOL TARTRATE 25 MG TABLET PO SCH ×2 (08:22→16:46)
[2017-02-12] MEDS: CLOPIDOGREL BISULFATE 75 MG TABLET NG SCH (08:22)
[2017-02-12] MEDS: PANTOPRAZOLE 40 MG VIAL IV SCH (08:22)
[2017-02-12] MEDS: predniSONE 20 MG TABLET PO SCH (08:22)
[2017-02-12] MEDS: FERROUS SULFATE (325 MG) 325 MG/TAB TABLET PO SCH (08:23)
[2017-02-12] MEDS: NEOMY SULF/BACITRAC ZN/POLY 15 GM TUBE TP SCH (08:24)
[2017-02-12] MEDS: MUPIROCIN OINT 2% 22 GM TUBE SCH ×2 (08:24→20:46)
[2017-02-12] MEDS: INSULIN REGULAR, HUMAN 100 UNIT/ML 3 ML VIAL SQ PRN ×2 (09:21→12:17)
--- NOTE | 2017-02-12 12:00 | NUR ---
RN NOTES PT SITTING UP ON A CHAIR , STABLE , CONTINUE MONITOR.
[2017-02-12] MEDS: Magnesium 1GM/D5W 100ML PREMIX 100 ML IV SCH ×2 (12:07→13:12)
[2017-02-12] MEDS: CADEXOMER IODINE 40 GM TUBE TP SCH (17:30)
--- NOTE | 2017-02-12 18:46 | NUR ---
RN NOTES PT TRANSFERED TO [facility] ROOM 107 IN STABLE CONDITION .
--- NOTE | 2017-02-12 19:20 | NUR ---
RN [facility] INITIAL NOTE PT RECEIVED IN NO ACUTE DISTRESS. A/O X2 BELIZEAN SPEAKING WITH MILD CONFUSION. ON TELE WITH SR 82. ON RA WITH 02 SATURATION OF 92% (COPD PT). PT IS CALM AND COMFORTABLE IN CHAIR IN WHICH HE WILL HAVE THE BEST 02 SATURATION. IRENE MIDLINE CLEAN DRY AND INTACT. WOUND CARE WILL BE CARRIED OUT ORDERED. WILL CONTINUE TO MONITOR PT FOR CHANGE IN CONDITION.
[2017-02-12] MEDS: ATORVASTATIN 10 MG TABLET NG SCH (21:30)
[2017-02-13] VITALS: BP 140/77
[2017-02-13] MEDS: BLOOD SUGAR DIAGNOSTIC 1 EACH STRIP IN SCH ×6 (00:34→21:31)
[2017-02-13] MEDS: INSULIN REGULAR, HUMAN 100 UNIT/ML 3 ML VIAL SQ PRN ×6 (00:35→21:43)
[2017-02-13] MEDS: IPRATROPIUM NEB FS 0.5 MG/2.5 ML AMPUL.NEB NEB SCH ×6 (03:13→23:06)
[2017-02-13] MEDS: ALBUTEROL FS 2.5 MG/3 ML VIAL.NEB NEB SCH ×6 (03:13→23:06)
[2017-02-13 04:00] VITALS: BP 135/85
--- NOTE | 2017-02-13 05:34 | NUR ---
RN [facility] CLOSING NOTE PT REMAINS IN NO ACUTE DISTRESS. PT IS ON TELE WITH SR 100. PATIENT IS AWAKE AND COMFORTABLE IN BED. PT HAS A IRENE MIDLINE THAT IS CLEAN DRY AND INTACT. COMFORT AND SAFETY MEASURES ENSURED DURING THE SHIFT. WILL ENDORSE CARE TO AM NURSE.
[2017-02-13 06:56] LABS: EOSINOPHILS # (AUTO) 0.1 /CMM (0.0-0.7); EOSINOPHILS % (AUTO) 0.6 % (0.0-6.0); HEMATOCRIT 39 % (39-51); HEMOGLOBIN 12.9 g/dL (13.5-17.5); LYMPHOCYTES # (AUTO) 1.4 /CMM (0.8-4.8); LYMPHOCYTES % (AUTO) 8.5 % (20.0-44.0); MEAN CORPUSCULAR HEMOGLOBIN 28 PG (26.0-33.0); MEAN CORPUSCULAR HGB CONC 33 g/dl (31.0-36.0); MEAN CORPUSCULAR VOLUME 85 fL (80-96); MONOCYTES # (AUTO) 0.7 /CMM (0.1-1.30); NEUTROPHILS # (AUTO) 14.5 /CMM (1.8-8.9); NEUTROPHILS % (AUTO) 86.9 % (43.0-81.0); PLATELET COUNT (AUTO) 242 /CMM (150-450); RDW COEFFICIENT OF VARIATION 18.5 (11.5-15.0); RED BLOOD CELL COUNT(AUTO) 4.66 MIL/uL (4.5-6.0); WHITE BLOOD COUNT (AUTO) 16.6 K/uL (4.3-11.0)
[2017-02-13 07:33] LABS: CALCIUM, SERUM 10.4 mg/dL (8.5-10.1); CHLORIDE 100 mmol/L (98-107); CREATININE 0.7 mg/dL (0.6-1.3); GLUCOSE 123 mg/dL (74-106); MAGNESIUM 1.8 mg/dL (1.8-2.4); PHOSPHORUS 3.1 mg/dL (2.5-4.9); POTASSIUM 4.8 mmol/L (3.5-5.1); UREA NITROGEN, BLOOD 27 mg/dL (7-18)
[2017-02-13 07:57] LABS: CARBON DIOXIDE 36 mmol/L (21-32); SODIUM SERUM 142 mmol/L (136-145)
[2017-02-13 08:00] VITALS: BP 143/84
[2017-02-13] MEDS: TAMSULOSIN 0.4 MG CAP.SR.24H PO SCH ×2 (09:41→17:07)
[2017-02-13] MEDS: CLOPIDOGREL BISULFATE 75 MG TABLET NG SCH (09:41)
[2017-02-13] MEDS: predniSONE 20 MG TABLET PO SCH (09:41)
[2017-02-13] MEDS: FLUTICASONE/VILANTEROL 1 EACH BLST.W.DEV IH SCH (09:41)
[2017-02-13] MEDS: METOPROLOL TARTRATE 25 MG TABLET PO SCH ×2 (09:42→17:08)
[2017-02-13] MEDS: MULTIVITAMINS,THERAGRAN 1 UDTAB TABLET PO SCH (09:42)
[2017-02-13] MEDS: ASPIRIN 81 MG TAB.CHEW PO SCH (09:42)
[2017-02-13] MEDS: FERROUS SULFATE (325 MG) 325 MG/TAB TABLET PO SCH (09:42)
[2017-02-13] MEDS: QUETIAPINE FUMARATE 25 MG TABLET PO SCH ×2 (09:42→17:08)
[2017-02-13] MEDS: PANTOPRAZOLE 40 MG VIAL IV SCH (09:43)
[2017-02-13] MEDS: METFORMIN 500 MG TABLET PO SCH ×2 (09:44→17:07)
[2017-02-13] MEDS: NEOMY SULF/BACITRAC ZN/POLY 15 GM TUBE TP SCH (09:44)
[2017-02-13] MEDS: MUPIROCIN OINT 2% 22 GM TUBE SCH ×2 (09:44→21:31)
[2017-02-13] MEDS: CADEXOMER IODINE 40 GM TUBE TP SCH (09:45)
[2017-02-13 12:00] VITALS: BP 132/82
[2017-02-13 16:00] VITALS: BP 124/64
--- NOTE | 2017-02-13 18:03 | NUR ---
RN [facility] PATIENT HAS NO RESPIRATORY DISTRESS ABLE TO CONSUME HIS SHARE OF MEAL WITH GOOD APPETITE ELEVATED BLOOD SUGAR STILL OBSERVED BM NOT NOTED ENDORSED TO NOD
[2017-02-13 20:00] VITALS: BP 108/56
--- NOTE | 2017-02-13 20:00 | NUR ---
RN NOTES RECEIVED PATIENT IN BED, ALERT AND AWAKE, CALM, NON-VERBAL, JAPANESE SPEAKING ONLY, NO SOB, NO RESPIRATORY DISTRESS, ON 1LPM VIA NC, SPO2 93%, NOT IN APPARENT PAIN, NO FACIAL GRIMACING, NO RESTLESSNESS, KEPT HOB ELEVATED, REPOSITIONED FOR COMFORT, CALL LIGHT WITHIN REACH, SON AT THE BEDSIDE.
[2017-02-13] MEDS: ATORVASTATIN 10 MG TABLET NG SCH (21:32)
[2017-02-13] MEDS: AZITHROMYCIN 250 MG TABLET GT SCH (23:10)
[2017-02-14] VITALS: BP 116/63
[2017-02-14] MEDS: ALBUTEROL FS 2.5 MG/3 ML VIAL.NEB NEB SCH ×5 (03:11→20:00)
[2017-02-14] MEDS: IPRATROPIUM NEB FS 0.5 MG/2.5 ML AMPUL.NEB NEB SCH ×5 (03:11→20:00)
[2017-02-14 04:00] VITALS: BP_SYST 116; BP_SYST 117; BP_DIAS 60; BP_DIAS 63
[2017-02-14] MEDS: BLOOD SUGAR DIAGNOSTIC 1 EACH STRIP IN SCH ×4 (06:19→21:53)
[2017-02-14 06:36] LABS: EOSINOPHILS # (AUTO) 0.2 /CMM (0.0-0.7); EOSINOPHILS % (AUTO) 1.5 % (0.0-6.0); HEMATOCRIT 38 % (39-51); HEMOGLOBIN 12.2 g/dL (13.5-17.5); LYMPHOCYTES # (AUTO) 0.8 /CMM (0.8-4.8); LYMPHOCYTES % (AUTO) 5.5 % (20.0-44.0); MEAN CORPUSCULAR HEMOGLOBIN 28 PG (26.0-33.0); MEAN CORPUSCULAR HGB CONC 32 g/dl (31.0-36.0); MEAN CORPUSCULAR VOLUME 86 fL (80-96); MONOCYTES # (AUTO) 0.8 /CMM (0.1-1.30); MONOCYTES % (AUTO) 5.7 % (2.0-12.0); NEUTROPHILS # (AUTO) 12.5 /CMM (1.8-8.9); NEUTROPHILS % (AUTO) 87.3 % (43.0-81.0); PLATELET COUNT (AUTO) 222 /CMM (150-450); RDW COEFFICIENT OF VARIATION 18.9 (11.5-15.0); WHITE BLOOD COUNT (AUTO) 14.3 K/uL (4.3-11.0)
[2017-02-14] MEDS: INSULIN REGULAR, HUMAN 100 UNIT/ML 3 ML VIAL SQ PRN ×4 (06:36→21:58)
--- NOTE | 2017-02-14 06:37 | NUR ---
RN NOTES PATIENT IS AWAKE AND ALERT, NO SOB, NO COMPLAIN OF PAIN, ASKING FOR FOOD, GIVEN SNACKS. SLEPT FOR 4 HOURS INTERMITENTLY. ACCUCHECK 103 MG/DL, NO INSULIN GIVEN, NO ADVERSE CHANGE OF CONDITION DURING SHIFT, WOUND CARE PROVIDED, NEEDS ATTENDED, CALL LIGHT WITHIN REACH.
[2017-02-14 07:02] LABS: CALCIUM, SERUM 10.7 mg/dL (8.5-10.1); CARBON DIOXIDE 38 mmol/L (21-32); CHLORIDE 102 mmol/L (98-107); CREATININE 0.9 mg/dL (0.6-1.3); GLUCOSE 78 mg/dL (74-106); MAGNESIUM 1.7 mg/dL (1.8-2.4); PHOSPHORUS 4.6 mg/dL (2.5-4.9); POTASSIUM 4.5 mmol/L (3.5-5.1); SODIUM SERUM 144 mmol/L (136-145); UREA NITROGEN, BLOOD 31 mg/dL (7-18)
--- NOTE | 2017-02-14 07:52 | NUR ---
RN INITIAL NOTES PT IS IN BED, AWAKE, A/O X2, KYRGYZ SPEAKING, NO COMPLAINTS OF PAIN. ON NASAL CANNULA 1LPM OF O2, SATURATING WELL, NO RESPIRATORY DISTRESS NOTED. ON TELE MONITOR SINUS TACH 101. GENERAL NON PITTING EDEMA NOTED, PT ABLE TO MOVE EXTREMITIES, ASSISTED PT WITH TURNING AND REPOSITIONING. ON PUREED DIET. IRENE MIDLINE IS FLUSHED AND PATENT. CALL LIGHT IS WITHIN REACH AND WILL CONTINUE TO MONITOR.
[2017-02-14 08:00] VITALS: BP 138/79
[2017-02-14] MEDS: FLUTICASONE/VILANTEROL 1 EACH BLST.W.DEV IH SCH (09:21)
[2017-02-14] MEDS: METOPROLOL TARTRATE 25 MG TABLET PO SCH ×2 (09:22→17:56)
[2017-02-14] MEDS: TAMSULOSIN 0.4 MG CAP.SR.24H PO SCH ×2 (09:22→17:55)
[2017-02-14] MEDS: CLOPIDOGREL BISULFATE 75 MG TABLET NG SCH (09:22)
[2017-02-14] MEDS: PANTOPRAZOLE 40 MG VIAL IV SCH (09:23)
[2017-02-14] MEDS: predniSONE 20 MG TABLET PO SCH (09:23)
[2017-02-14] MEDS: FERROUS SULFATE (325 MG) 325 MG/TAB TABLET PO SCH (09:23)
[2017-02-14] MEDS: ASPIRIN 81 MG TAB.CHEW PO SCH (09:23)
[2017-02-14] MEDS: METFORMIN 500 MG TABLET PO SCH ×2 (09:23→17:55)
[2017-02-14] MEDS: MULTIVITAMINS,THERAGRAN 1 UDTAB TABLET PO SCH (09:23)
[2017-02-14] MEDS: MUPIROCIN OINT 2% 22 GM TUBE SCH ×2 (09:24→21:26)
[2017-02-14] MEDS: NEOMY SULF/BACITRAC ZN/POLY 15 GM TUBE TP SCH (09:25)
[2017-02-14] MEDS: QUETIAPINE FUMARATE 25 MG TABLET PO SCH ×2 (09:26→17:55)
[2017-02-14] MEDS: CADEXOMER IODINE 40 GM TUBE TP SCH (09:27)
[2017-02-14] MEDS: Magnesium 1GM/D5W 100ML PREMIX 100 ML IV SCH ×2 (11:42→12:24)
[2017-02-14 12:00] VITALS: BP 127/64
[2017-02-14] MEDS ORDERED: FUROSEMIDE 20 MG/2 ML VIAL IV ONE (13:30)
[2017-02-14 16:00] VITALS: BP 124/74
--- NOTE | 2017-02-14 18:43 | NUR ---
RN CLOSING NOTES PT IS RESTING COMFORTABLY IN BED. SINUS TACHY ON TELE MONITOR 111. ON NASAL CANNULA 1LPM AND TOLERATING IT WELL. NO RESPIRATORY DISTRESS NOTED. WOUND TREATMENT DONE, MAXIMUM 2 PEOPLE ASSIST WITH TURNING AND REPOSITIONING. PT DIET ADVANCED TO [facility] SOFT. IRENE MIDLINE IS PATENT, NO S/SX OF INFECTION OR INFILTRATION NOTED. MAGNESIUM REPLACED WITH 2 BAGS. PODIATRY CONSULT DONE. ALL MEDS GIVEN ORDERED AND TOLERATED IT WELL, ALL NEEDS MET, CALL LIGHT WITHIN REACH. WILL ENDORSE TO PM NURSE FOR CONTINUATION OF CARE.
[2017-02-14 20:00] VITALS: BP 120/71
--- NOTE | 2017-02-14 20:30 | NUR ---
RT GAVE THE TREATMENT AND THE PATIENT TO 2L VIA NASAL CANNULA - SATURATION 93% CONTINUE TO MONITOR
[2017-02-14] MEDS: ATORVASTATIN 10 MG TABLET NG SCH (21:54)
[2017-02-14] MEDS: AZITHROMYCIN 250 MG TABLET GT SCH (21:59)
--- NOTE | 2017-02-14 22:00 | NUR ---
SCHEDULED MEDICATIONS GIVEN ACCU CHECK 316- COVERAGE GIVEN PER ISS CONTINUE TO MONITOR
--- NOTE | 2017-02-14 22:00 | NUR ---
RECEIVED PATIENT IN BED, PATIENT IS A&O X2, [place] SPEAKING ONLY. SON AT THE BED SIDE WILLING TO TRANSLATE FOR THE PATIENT, SON IS ATTENTIVE TO THE PATIENT. VSS, AFEBRILE, DENIES PAIN NO DISTRESS NOTED SATURATION 85% ON 1L VIA NASAL CANNULA. TITRATED TO 3L AT THAT TIME AND NOTIFIED RT
[2017-02-15] VITALS: BP 114/58
[2017-02-15] MEDS: ALBUTEROL FS 2.5 MG/3 ML VIAL.NEB NEB SCH ×5 (03:52→15:56)
[2017-02-15] MEDS: IPRATROPIUM NEB FS 0.5 MG/2.5 ML AMPUL.NEB NEB SCH ×5 (03:53→15:56)
[2017-02-15 04:00] VITALS: BP 129/74
--- NOTE | 2017-02-15 07:15 | NUR ---
STEAM PRESS TENDER NOTE: RECEIVED PATIENT AWAKE IN BED, A&OX2, PANAMANIAN SPEAKING. RESPIRATIONS EVEN AND UNLABORED, NO SIGNS OF SOB NOTED. ON 2L O2 VIA NC. ON TELE ST. DENIES PAIN. IRENE MIDLINE INTACT AND PATENT. DRESSINGS ON LOWER LEGS. NON-PITTING EDEMA NOTED. BED LOW, LOCKED WITH CALL LIGHT WITHIN REACH. ALL NEEDS MET AND ANTICIPATED. ISOLATION PRECAUTIONS IN PLACE. WILL CONTINUE TO MONITOR.
[2017-02-15 08:00] VITALS: BP 136/82
[2017-02-15] MEDS: BLOOD SUGAR DIAGNOSTIC 1 EACH STRIP IN SCH ×3 (08:09→17:20)
[2017-02-15] MEDS: MULTIVITAMINS,THERAGRAN 1 UDTAB TABLET PO SCH (08:10)
[2017-02-15] MEDS: FERROUS SULFATE (325 MG) 325 MG/TAB TABLET PO SCH (08:11)
[2017-02-15] MEDS: CLOPIDOGREL BISULFATE 75 MG TABLET NG SCH (08:11)
[2017-02-15] MEDS: ASPIRIN 81 MG TAB.CHEW PO SCH (08:11)
[2017-02-15] MEDS: METFORMIN 500 MG TABLET PO SCH ×2 (08:11→17:05)
[2017-02-15] MEDS: METOPROLOL TARTRATE 25 MG TABLET PO SCH ×2 (08:12→17:05)
[2017-02-15] MEDS: MUPIROCIN OINT 2% 22 GM TUBE SCH (08:12)
[2017-02-15] MEDS: PANTOPRAZOLE 40 MG VIAL IV SCH (08:12)
[2017-02-15] MEDS: NEOMY SULF/BACITRAC ZN/POLY 15 GM TUBE TP SCH (08:12)
[2017-02-15] MEDS: INSULIN REGULAR, HUMAN 100 UNIT/ML 3 ML VIAL SQ PRN ×3 (08:25→17:15)
[2017-02-15] MEDS ORDERED: predniSONE 20 MG TABLET PO SCH (09:00)
--- NOTE | 2017-02-15 09:45 | NUR ---
PEDIATRICIAN MANAGING PARTNER NOTE: PHARM NOTIFIED OF IODOSOR[employer] REQUEST.
[2017-02-15] MEDS: TAMSULOSIN 0.4 MG CAP.SR.24H PO SCH ×2 (09:55→17:05)
[2017-02-15] MEDS: QUETIAPINE FUMARATE 25 MG TABLET PO SCH ×2 (09:55→17:05)
[2017-02-15 12:00] VITALS: BP 115/65
--- NOTE | 2017-02-15 12:20 | NUR ---
CLAY MIXER NOTE: PER DR. EDWARDS, PT MUST BE CLEARED BY CLAIM REP PRIOR TO D/C. CHARGE NURSE INFORMED. WILL F/U WITH CM.
[2017-02-15] MEDS ORDERED: ATOR10TA NG (12:35)
[2017-02-15] MEDS ORDERED: ALBUT2 NEB (12:35)
[2017-02-15] MEDS ORDERED: IPRA0.2S9 NEB (12:35)
[2017-02-15] MEDS ORDERED: CADE40GE2 TP (12:35)
[2017-02-15] MEDS ORDERED: PRED20TA PO (12:35)
[2017-02-15] MEDS ORDERED: PANT40VI IV (12:35)
[2017-02-15] MEDS ORDERED: Blood Sugar Diagnostic IN (12:35)
[2017-02-15] MEDS ORDERED: AZIT250T GT (12:35)
[2017-02-15] MEDS ORDERED: CLOP75TA2 NG (12:35)
[2017-02-15] MEDS: CADEXOMER IODINE 40 GM TUBE TP SCH (12:49)
--- NOTE | 2017-02-15 13:10 | NUR ---
BARK PEELER NOTE: DR. PEGUERO CLEARED PT. OK TO D/C.
--- NOTE | 2017-02-15 15:29 | NUR ---
TOBACCO FEEDER CATCHER NOTE: DIALYSIS NURSE REPORTED REMOVED WITH BP 111/56. Addendum: 02/15/17 at 1530 by BRIANNA GUERRA RN DISREGARD WRONG PATIENT.
--- NOTE | 2017-02-15 15:43 | NUR ---
RAW FINISH MILL OPERATOR NOTE: RECEIVED PATIENT AWAKE IN BED, A&OX2, [place] SPEAKING. RESPIRATIONS EVEN AND UNLABORED, NO SIGNS OF SOB NOTED. ON 2L O2 VIA NC. ON TELE ST. DENIES PAIN. IRENE MIDLINE INTACT AND PATENT. DRESSINGS ON LOWER LEGS. NON-PITTING EDEMA NOTED. BED LOW, LOCKED WITH CALL LIGHT WITHIN REACH. ALL NEEDS MET AND ANTICIPATED. ISOLATION PRECAUTIONS IN PLACE. WILL CONTINUE TO MONITOR.
[2017-02-15 16:00] VITALS: BP 128/74
[2017-02-15 17:05] VITALS: BP 128/74
--- NOTE | 2017-02-15 17:30 | NUR ---
TELE D/C RN NOTE: PATIENT D/C BACK TO [facility] IN STABLE CONDITION. DENIES PAIN. RESPIRATIONS EVEN AND UNLABORED WITH NO SOB NOTED. IRENE MIDLINE INTACT AND PATENT. DRESSINGS ON LOWER LEGS INTACT. NON-PITTING EDEMA NOTED. PICTURES TAKEN. FOLLOW UP INSTRUCTIONS PROVIDED TO PATIENT. D/C FORMS GIVEN TO EMT. PATIENT LEFT AT 1730 WITH 2 ORAL HYGIENIST.
== END 2017-02-15 17:40 | DRG 208 ==
LOC: ER 21:10 → ICU 02-07 00:01 → TELE-TD 02-12 18:25 → TELE1 02-13 11:16
PROVIDERS: ADMIT Family Medicine; ATTEND Family Medicine
PROC: 5A1945Z Respiratory Ventilation, 24-96 Consecutive Hours (ICD-10-PCS; principal; 2017-02-07)
PROC: 0BH17EZ Insertion of Endotracheal Airway into Trachea, Via Natural or Artificial Opening (ICD-10-PCS; 2017-02-07)
PROC: 05H633Z Insertion of Infusion Device into Left Subclavian Vein, Percutaneous Approach (ICD-10-PCS; 2017-02-07)
DX: J44.1 Chronic obstructive pulmonary disease with (acute) exacerbation (principal); I21.4 Non-ST elevation (NSTEMI) myocardial infarction; J96.02 Acute respiratory failure with hypercapnia; N17.0 Acute kidney failure with tubular necrosis; J96.01 Acute respiratory failure with hypoxia; I50.23 Acute on chronic systolic (congestive) heart failure; G92 Toxic encephalopathy; R13.10 Dysphagia, unspecified; E44.1 Mild protein-calorie malnutrition; J93.83 Other pneumothorax; I27.2 Other secondary pulmonary hypertension; E10.649 Type 1 diabetes mellitus with hypoglycemia without coma; I07.1 Rheumatic tricuspid insufficiency; D63.8 Anemia in other chronic diseases classified elsewhere; E10.65 Type 1 diabetes mellitus with hyperglycemia; E78.5 Hyperlipidemia, unspecified; I25.10 Atherosclerotic heart disease of native coronary artery without angina pectoris; I25.2 Old myocardial infarction; I25.5 Ischemic cardiomyopathy; I70.0 Atherosclerosis of aorta; I87.8 Other specified disorders of veins; K21.9 Gastro-esophageal reflux disease without esophagitis; K59.00 Constipation, unspecified; M85.80 Other specified disorders of bone density and structure, unspecified site; N40.0 Benign prostatic hyperplasia without lower urinary tract symptoms; Z79.4 Long term (current) use of insulin; Z79.52 Long term (current) use of systemic steroids; Z79.82 Long term (current) use of aspirin; Z79.84 Long term (current) use of oral hypoglycemic drugs; Z79.899 Other long term (current) drug therapy; Z87.891 Personal history of nicotine dependence; F32.9 Major depressive disorder, single episode, unspecified; I11.0 Hypertensive heart disease with heart failure; T14.8 Other injury of unspecified body region; X58.XXXA Exposure to other specified factors, initial encounter; Y92.129 Unspecified place in nursing home as the place of occurrence of the external cause
CPT/HCPCS: 31720; 36415; 36600; 71010-TC; 80048-TC; 80061-TC; 80076-TC; 81000-TC; 82803-TC; 82947-TC; 82962-TC; 83605-TC; 83735-TC; 84100-TC; 84484-TC; 85025-TC; 85730-TC; 87040-TC; 87081-TC; 87086-TC; 87400; 92526; 92611-TC; 93307-TC; 94002-TC; 94003-TC; 94762-TC; 94799-TC; 99082-TC; A4216; A4217; A4606; A6402; A6403; A9563; C9113; J0456; J1650; J1815; J1940; J1956; J2060; J2930; J3010; J3475; J3490; J7030; J7040; J7050; J7060; Q9967; Z7610